=== PATIENT | male | born 1995 | race Asian ===

== ENCOUNTER 2017-01-22 21:46 | Inpatient (IN) | payer OTHER ==
[~2017-01-22] VITALS: Ht 167.6 cm; Wt 73.0 kg
[2017-01-22 21:48] VITALS: BP 136/76; PULSE 71; RESP 16; TEMP 97.9; O2SAT 97
[2017-01-23] VITALS (12 sets, daily range): BP systolic 93–153; BP diastolic 52–79; PULSE 53–82; RESP 16–20; TEMP 97.7–99.2; O2SAT 97–100
--- NOTE | 2017-01-23 00:13 | RADRPT ---
EXAM DATE/TIME: 01/23/2017 00:05 [facility] COMPARISON: No previous studies available for comparison. INDICATIONS : Shortness of breath and chest pain. MEDICAL HISTORY : None. SURGICAL HISTORY : None. ENCOUNTER: Initial ACUITY: 1 day PAIN SCORE: 2/10 LOCATION: Bilateral chest FINDINGS: There is a diffuse pneumothorax presently occupying the entire left pleural space with slight shift o f the mediastinal structures towards the right and the left lung is completely collapsed. No definite fracture is seen for technique. CONCLUSION: Pneumothorax occupying the entire left pleural space with completely collapsed left lung. Kory Haile MD on January 23, 2017 at 0:10 Board Certified Radiologist. This report was verified electronically.
[2017-01-23] MEDS ORDERED: LIDOCAINE 2%/EPINEPHrine 1:100,000 50ML MDV ONE (00:59)
[2017-01-23] MEDS ORDERED: PROPOFOL 200 MG/20 ML AMP IV ONE (01:00)
[2017-01-23] MEDS ORDERED: MORPHINE SULFATE 4 MG/ML INJ IV PUSH ONE (01:00)
[2017-01-23] MEDS ORDERED: ONDANSETRON HCL 4 MG/2 ML VIAL IV ONE (01:00)
[2017-01-23] MEDS ORDERED: LIDOCAINE 1%/EPINEPHrine 1:100,000 SOLN 20 ML VIAL INFIL ONE (01:00)
[2017-01-23] MEDS ORDERED: SODIUM CHLOR 0.9% 1000 ML INJ 1,000 ML IV ONE (01:00)
[2017-01-23 01:07] LABS: AUTOMATED NEUTROPHIL # 6.8 TH/MM3 (1.8-7.7); BASOPHIL % 0.3 % (0.0-2.0); EOSINOPHIL # 0.2 TH/MM3 (0-0.4); EOSINOPHIL % 1.5 % (0.0-4.0); HEMATOCRIT 46.1 % (39.0-51.0); HEMO FLAGS DIFF FINAL; LYMPH % 23.7 % (9.0-44.0); LYMPHOCYTE # 2.4 TH/MM3 (1.0-4.8); MEAN CELL VOLUME 90.2 FL (80.0-100.0); MEAN CORPUSCULAR HEMOGLOBIN 29.6 PG (27.0-34.0); MEAN CORPUSCULAR HGB CONC 32.8 % (32.0-36.0); MONO % 6.5 % (0.0-8.0); PLATELET COUNT 195 TH/MM3 (150-450); RED BLOOD COUNT 5.11 MIL/MM3 (4.50-5.90); RED CELL DISTRIBUTION WIDTH 12.9 % (11.6-17.2); WHITE BLOOD COUNT 10.1 TH/MM3 (4.0-11.0)
[2017-01-23 01:19] LABS: APTT (PATIENT) 28.7 SEC (24.3-30.1); PROTHROMBIN TIME - PATIENT 10.7 SEC (9.8-11.6)
[2017-01-23 01:42] LABS: BICARBONATE 30.4 MEQ/L (21.0-32.0); POTASSIUM 3.9 MEQ/L (3.5-5.1)
--- NOTE | 2017-01-23 02:16 | PD ---
HPI Chief Complaint: Respiratory Distress Time Seen by Provider: 00:38 Travel History International Travel<30 days: No Contact w/Intl Traveler<30days: No Traveled to known affect area: No History of Present Illness HPI The patient is a 21 year old male who presents to the [facility] emergency department with a history of left-sided chest pain and back pain that he reports began suddenly while he was sitting in class. He reports that the pain was sharp in character. The patient reports that after class when he was walking around he noticed that he had dyspnea on exertion. The patient reports that he had multiple things to do today, therefore he waited until he completed all of his activities and then came to the emergency department. The patient denies having any history of cardiac disease. The patient denies having any recent fevers, cough, congestion, neck pain, abdominal pain, vomiting, diarrhea , urinary symptoms, or neurologic symptoms. [facility] Past Medical History Narrative Medical The patient's past medical history is reportedly none. Medical History: Denies Significant Hx Diminished Hearing: No Tetanus Vaccination: Never Vaccinated Influenza Vaccination: No Past Surgical History Narrative Surgical The patient's past surgical history is reportedly none. Surgical History: No Previous Surgery Social History Alcohol Use: No Tobacco Use: No Substance Use: No Allergies-Medications (Allergen,Severity, Reaction): Coded Allergies: No Known Allergies (Unverified , 01/23/17) Reported Meds & Prescriptions Reported Meds & Active Scripts Active No Active Prescriptions or Reported Medications Review of Systems Except as stated in HPI: all other systems reviewed are Neg General / Constitutional: No: Fever Eyes: No: Visual changes HENT: No: Headaches Cardiovascular: Positive: Chest Pain or Discomfort, Dyspnea on exertion Respiratory: Positive: Shortness of Breath Gastrointestinal: No: Abdominal Pain Genitourinary: No: Dysuria Musculoskeletal: No: Pain Skin: No Rash Neurologic: No: Weakness Psychiatric: No: Depression Endocrine: No: Polydipsia Hematologic/Lymphatic: No: Easy Bruising Physical Exam Narrative General: The patient is a well-developed well-nourished male in no acute distress. Head and Neck exam: Head is normocephalic atraumatic. Eyes: EOMI, pupils are equal round and reactive to light. Nose: Midline septum with pink mucous membranes Mouth: Dentition unremarkable. Moist mucus membranes. Posterior oropharynx is not erythematous. No tonsillar hypertrophy. Uvula midline. Airway patent. Neck: No palpable lymphadenopathy. No nuchal rigidity. No thyromegaly. Trachea is midline. Cardiovascular: Regular rate and rhythm without murmurs, gallops, or rubs. Lungs: The patient has decreased breath sounds on the left side, normal breath sounds on the right, no wheezes, rhonchi, or crackles. Abdomen: Soft, without tenderness to palpation in all 4 quadrants of the abdomen. No guarding, rebound, or rigidity. Normal bowel sounds are audible. Tenderness on palpation of McBurney's point. Extremities: No clubbing, cyanosis, or edema. 2+ pulses in all 4 extremities. Back: No costovertebral angle tenderness to palpation. Neurologic Exam: Grossly nonfocal. Skin Exam: No rash noted. Intact skin that is warm and dry. Data Data Last Documented VS Vital Signs Date Time Temp Pulse Resp B/P Pulse Ox O2 Delivery O2 Flow Rate FiO2 01/23/17 02:00 64 18 93/52 100 Nasal Cannula 2 01/22/17 21:48 97.9 Orders Chest, Pa & Lat (01/22/17 ) Complete Blood Count With Diff (01/23/17 00:40) Basic Metabolic Panel (Bmp) (01/23/17 00:40) Prothrombin Time / Inr (Pt) (01/23/17 00:40) Act Partial Throm Time (Ptt) (01/23/17 00:40) Iv Access Insert/Monitor (01/23/17 00:40) Ecg Monitoring (01/23/17 00:40) Oxygen Administration (01/23/17 00:40) Oximetry (01/23/17 00:40) Sodium Chlor 0.9% 1000 Ml Inj (Ns 1000 M (01/23/17 01:00) Ondansetron Inj (Zofran Inj) (01/23/17 01:00) Propofol 200 Mg/20 Ml Inj (Diprivan 200 (01/23/17 01:00) Morphine Inj (Morphine Inj) (01/23/17 01:00) Lidocai-Epi 1%-1:100,000 Inj (Xylocaine- (01/23/17 01:00) Lidocai-Epi 2%-1:100,000 Inj (Xylocaine- (01/23/17 00:59) Chest, Single Ap (01/23/17 02:10) Admit Order (Ed Use Only) (01/23/17 02:35) Vital Signs (Adult) Q4H (01/23/17 02:35) Activity Oob With Assistance (01/23/17 02:35) Sterilization Tech / Telemetry .CONTINUOUS (01/23/17 02:35) Diet Heart Healthy (01/23/17 Breakfast) Sodium Chloride 0.9% Flush (Ns Flush) (01/23/17 02:45) Sodium Chloride 0.9% Flush (Ns Flush) (01/23/17 09:00) Naloxone Inj (Narcan Inj) (01/23/17 02:45) Place In Observation (01/23/17 ) Labs Laboratory Tests Test 01/23/17 00:46 White Blood Count 10.1 TH/MM3 Red Blood Count 5.11 MIL/MM3 Hemoglobin 15.1 GM/DL Hematocrit 46.1 % Mean Corpuscular Volume 90.2 FL Mean Corpuscular Hemoglobin 29.6 PG Mean Corpuscular Hemoglobin 32.8 % Concent Red Cell Distribution Width 12.9 % Platelet Count 195 TH/MM3 Mean Platelet Volume 8.9 FL Neutrophils (%) (Auto) 68.0 % Lymphocytes (%) (Auto) 23.7 % Monocytes (%) (Auto) 6.5 % Eosinophils (%) (Auto) 1.5 % Basophils (%) (Auto) 0.3 % Neutrophils # (Auto) 6.8 TH/MM3 Lymphocytes # (Auto) 2.4 TH/MM3 Monocytes # (Auto) 0.7 TH/MM3 Eosinophils # (Auto) 0.2 TH/MM3 Basophils # (Auto) 0.0 TH/MM3 CBC Comment DIFF FINAL Differential Comment Prothrombin Time 10.7 SEC Prothromb Time International 1.0 RATIO Ratio Activated Partial 28.7 SEC Thromboplast Time Sodium Level 139 MEQ/L Potassium Level 3.9 MEQ/L Chloride Level 103 MEQ/L Carbon Dioxide Level 30.4 MEQ/L Anion Gap 6 MEQ/L Blood Urea Nitrogen 16 MG/DL Creatinine 1.03 MG/DL Estimat Glomerular Filtration 89 ML/MIN Rate Random Glucose 125 MG/DL Calcium Level 9.0 MG/DL MDM Medical Decision Making Medical Screen Exam Complete: Yes Emergency Medical Condition: Yes Medical Record Reviewed: Yes Interpretation(s) Last Impressions Chest X-Ray 01/22/17 0000 Signed Impressions: Service Date/Time: Monday, January 23, 2017 00:05 - CONCLUSION: Pneumothorax occupying the entire left pleural space with completely collapsed left lung. Kory Haile MD Differential Diagnosis Pneumothorax, versus pneumonia, versus costochondritis, versus musculoskeletal strain, versus pleurisy Narrative Course During the course of the patients emergency department visit, the patients history, examination, and differential diagnosis were reviewed with the patient. The patient had a chest x-ray ordered. He was on a can marker with oximetry and blood pressure monitoring. The patient had an EKG done on arrival. The patient's EKG shows a sinus rhythm heart rate of 74, no acute ST segment elevation or depression, QRS duration is 81 ms, QTC 372 ms. The chest x-ray came back as showing a large left-sided pneumothorax. IV access was obtained, blood work was sent for analysis. The patient consented for a pigtail chest tube placement on the left side. The patient was initially provided morphine for pain, Zofran for nausea, normal saline 1 L IV fluid bolus was started. The patients laboratory studies were reviewed and remarkable for a CBC that is within normal limits, BMP is unremarkable, glucose 125, PT PTT within normal limits. A repeat chest x-ray reveals reexpansion of the patient's collapsed lung with a pigtail catheter in place. The patients results were discussed with the patient, including the plan of care. I explained that further testing and/ or monitoring is indicated based on the patients history, examination, and/ or laboratory findings. Therefore, I recommended admission for additional evaluation. The patient expressed understanding and was agreeable with this plan. The patient was admitted to the hospital in stable condition and [facility] Procedures Procedure Narrative The patient consented to Chest tube placement on the left. While procedural sedation was provided by Dr. Hansen with propofol, a time out was done and the patient had a left sided pig tail chest tube placed in the 5th intercostal space left anterior axillary line after thoroughly cleansing the area. The catheter was easily placed and connected to under water suction at 40. The catheter was secured and a postprocedure fill confirmed placement and reexpansion of his lung. Physician Communication Physician Communication The patient's case was d/w Dr. De Oliveira who agreed with the plan to proceed with admission. Diagnosis Primary Impression: Spontaneous pneumothorax Admitting Information Admitting Physician Requests: Admit Scripts No Active Prescriptions or Reported Meds Tracey Chew MD Jan 23, 2017 02:15
--- NOTE | 2017-01-23 02:43 | RADRPT ---
EXAM DATE/TIME: 01/23/2017 02:25 [facility] COMPARISON: CHEST PA & LAT, January 23, 2017, 0:05. INDICATIONS : Post procedure, chest tube placement. MEDICAL HISTORY : None. SURGICAL HISTORY : None. ENCOUNTER: Initial ACUITY: 1 day PAIN SCORE: 0/10 LOCATION: Bilateral chest FINDINGS: Chest tube is present on the left side. Previously seen pneumothorax has basically resolved with the exception of a tiny left apical pneumothorax remaining. There is slight atelectasis in the left upper lung and left lower lung. CONCLUSION: Reexpansion of the left lung post chest tube placement with a tiny left apical pneumothorax. Kory Haile MD on January 23, 2017 at 2:41 Board Certified Radiologist. This report was verified electronically.
[2017-01-23] MEDS ORDERED: SODIUM CHLORIDE 0.9% FLUSH 10 ML FLUSH IV FLUSH PRN (02:45)
[2017-01-23] MEDS ORDERED: NALOXONE HCL 0.4 MG/ML AMP IV PRN (02:45)
--- NOTE | 2017-01-23 07:42 | HHI.HP ---
[facility] Primary Care Physician No Primary Care Physician Admission Diagnosis Spontaneous pneumothorax Diagnoses: (1) Spontaneous pneumothorax Diagnosis: Principal Chief Complaint: chest pain Travel History International Travel<30 Days: No Contact w/Intl Traveler <30 Da: No Traveled to Known Affected Are: No History of Present Illness patient is a 21 y/o male with no significant past medical history who presented to ER with left sided chest pain. he says that yesterday around ten in the morning he suddenly started to have some chest pain. pain was moderate in intensity, left sided and associated with sob. he says that the pain lasted till yesterday evening when he decided to come to ER. he was found to have pneumothorax for which he had chest tube. the pain and sob improved after the chest tube insertion. Review of Systems Constitutional: DENIES: Fever, Weight loss, Chills, Night Sweats Eyes: DENIES: Blurred vision, Diplopia, Vision loss, Double Vision Ears, nose, mouth, throat: DENIES: Tinnitus, Vertigo, Throat pain, Epistaxis Respiratory: COMPLAINS OF: Shortness of breath, DENIES: Apneas, Cough, Snoring , Wheezing, Hemoptysis, Sputum production Cardiovascular: COMPLAINS OF: Chest pain, DENIES: Palpitations, Syncope, Dyspnea on Exertion, PND, Lower Extremity Edema, Orthopnea, Claudication Gastrointestinal: DENIES: Abdominal pain, Black stools, Bloody stools, Constipation, Diarrhea, Nausea, Vomiting, Difficulty Swallowing, Anorexia Genitourinary: DENIES: Urinary frequency, Urgency, Hematuria, Dysuria Musculoskeletal: DENIES: Joint pain, Muscle aches, Stiffness, Joint Swelling Integumentary: DENIES: Rash Neurologic: DENIES: Abnormal gait, Headache, Localized weakness, Paresthesias, Seizures, Speech Problems, Tremor, Poor Balance Psychiatric: DENIES: Anxiety, Confusion, Mood changes, Depression, Hallucinations, Agitation, Suicidal Ideation, Homicidal Ideation, Delusions Past Family Social History Past Medical History not significant. Past Surgical History none reported. Reported Medications none. Allergies: Coded Allergies: No Known Allergies (Unverified , 01/23/17) Active Ordered Medications Current Medications Sodium Chloride (NS 1000 ml Inj) 1,000 ml @ 1,000 mls/hr Q1H ONCE IV Last administered on 01/23/17 02:09; Start 01/23/17 at 01:00; Stop 01/23/17 at 01:59 ; Status DC Ondansetron HCl (Zofran Inj) 4 mg ONCE ONCE IV Last administered on 01/23/17 02:09; Start 01/23/17 at 01:00; Stop 01/23/17 at 01:01; Status DC Propofol (Diprivan 200 Mg/20 ml Inj) 50 mg ONCE ONCE IV Last administered on 01/23/17 02:09; Start 01/23/17 at 01:00; Stop 01/23/17 at 01:01; Status DC Morphine Sulfate (Morphine Inj) 2 mg ONCE ONCE IV PUSH Last administered on 02:08; Start 01/23/17 at 01:00; Stop 01/23/17 at 01:01; Status DC Lidocaine/ Epinephrine (Xylocaine-Epi 1%-1:100,000 Inj) 30 ml ONCE ONCE INFIL Last administered on 01/23/17 02:09; Start 01/23/17 at 01:00; Stop 01/23/17 at 01:01; Status DC Sodium Chloride (NS Flush) 2 ml UNSCH PRN IV FLUSH FLUSH AFTER USING IV ACCESS ; Start 01/23/17 at 02:45 Sodium Chloride (NS Flush) 2 ml BID IV FLUSH ; Start 01/23/17 at 09:00 Naloxone HCl (Narcan Inj) 0.4 mg UNSCH PRN IV SEE LABEL COMMENTS; Start at 02:45 Family History not significant. Social History no smoking or drinking. Physical Exam Vital Signs Vital Signs Date Time Temp Pulse Resp B/P Pulse Ox O2 Delivery O2 Flow Rate FiO2 01/23/17 05:01 98.6 81 16 127/60 100 01/23/17 04:00 74 16 103/52 100 Nasal Cannula 2 01/23/17 03:54 100 Nasal Cannula 2 01/23/17 03:00 78 18 119/56 100 Nasal Cannula 2 01/23/17 02:00 64 18 93/52 100 Nasal Cannula 2 01/23/17 01:40 100 Nasal Cannula 4.00 01/23/17 01:40 100 4.00 01/23/17 01:00 82 20 153/79 100 Nasal Cannula 2 01/23/17 00:31 85 22 98 Room Air 01/22/17 21:48 97.9 71 16 136/76 97 Room Air Physical Exam GENERAL: This is a well-nourished, well-developed patient, in no apparent distress. SKIN: No rashes, ecchymoses or lesions. Cool and dry. HEAD: Atraumatic. Normocephalic. No temporal or scalp tenderness. EYES: Pupils equal round and reactive. Extraocular motions intact. No scleral icterus. No injection or drainage. ENT: Nose without bleeding, purulent drainage or septal hematoma. Throat without erythema, tonsillar hypertrophy or exudate. Uvula midline. Airway patent. NECK: Trachea midline. No JVD or lymphadenopathy. Supple, nontender, no meningeal signs. CARDIOVASCULAR: Regular rate and rhythm without murmurs, gallops, or rubs. RESPIRATORY: diminished air entry on left base with chest tube in place. GASTROINTESTINAL: Abdomen soft, non-tender, nondistended. No hepato-splenomegaly , or palpable masses. No guarding. MUSCULOSKELETAL: Extremities without clubbing, cyanosis, or edema. No joint tenderness, effusion, or edema noted. No calf tenderness. Negative Homans sign bilaterally. NEUROLOGICAL: Awake and alert. Cranial nerves II through XII intact. Motor and sensory grossly within normal limits. Five out of 5 muscle strength in all muscle groups. Normal speech. Laboratory Laboratory Tests Test 01/23/17 00:46 White Blood Count 10.1 Red Blood Count 5.11 Hemoglobin 15.1 Hematocrit 46.1 Mean Corpuscular Volume 90.2 Mean Corpuscular Hemoglobin 29.6 Mean Corpuscular Hemoglobin 32.8 Concent Red Cell Distribution Width 12.9 Platelet Count 195 Mean Platelet Volume 8.9 Neutrophils (%) (Auto) 68.0 Lymphocytes (%) (Auto) 23.7 Monocytes (%) (Auto) 6.5 Eosinophils (%) (Auto) 1.5 Basophils (%) (Auto) 0.3 Neutrophils # (Auto) 6.8 Lymphocytes # (Auto) 2.4 Monocytes # (Auto) 0.7 Eosinophils # (Auto) 0.2 Basophils # (Auto) 0.0 CBC Comment DIFF FINAL Differential Comment Prothrombin Time 10.7 Prothromb Time International 1.0 Ratio Activated Partial 28.7 Thromboplast Time Sodium Level 139 Potassium Level 3.9 Chloride Level 103 Carbon Dioxide Level 30.4 Anion Gap 6 Blood Urea Nitrogen 16 Creatinine 1.03 Estimat Glomerular Filtration 89 Rate Random Glucose 125 Calcium Level 9.0 Result Diagram: 01/23/17 0046 01/23/17 0046 Imaging Last Impressions Chest X-Ray 01/23/17209 Signed Impressions: Service Date/Time: Monday, January 23, 2017 02:25 - CONCLUSION: Reexpansion of the left lung post chest tube placement with a tiny left apical pneumothorax. Kory Haile MD Assessment and Plan Assessment and Plan A/P - spontaneous pneumothorax with collapsed left lung. s/p chest tube placement- continue with pain control. pulmonary consulted. Discussed Condition With the patient. Physician Certification 2 Midnight Certification Type: Admission for Inpatient Services Order for Inpatient Services The services are ordered in accordance with Medicare regulations or non- Medicare payer requirements, as applicable. In the case of services not specified as inpatient-only, they are appropriately provided as inpatient services in accordance with the 2-midnight benchmark. Estimated LOS (days): 2 days is the estimated time the patient will need to remain in the hospital, assuming treatment plan goals are met and no additional complications. Post-Hospital Plan: Home Jose Yu MD Jan 23, 2017 07:42
[2017-01-23] MEDS: SODIUM CHLORIDE 0.9% FLUSH 10 ML FLUSH IV FLUSH SCH ×2 (07:57→20:11)
--- NOTE | 2017-01-23 07:57 | EKG ---
Date Performed: 01/23/2017 Time Performed: 00:37:07 PTAGE: 21 years EKG: BASELINE ARTIFACT PRESENT. Sinus rhythm POSSIBLE RIGHT VENTRICULAR CONDUCTION DELAY BORDERLINE ECG NO PREVIOUS TRACING DOCTOR: Víctor Cowart Interpretating Date/Time 01/23/2017 07:56:22
[2017-01-23] MEDS: ACETAMINOPHEN 325 MG TAB PO PRN ×2 (13:46→20:15)
--- NOTE | 2017-01-23 22:48 | RADRPT ---
EXAM DATE/TIME: 01/23/2017 22:37 [facility] COMPARISON: No previous studies available for comparison. INDICATIONS : Evaluate pneumothorax. RADIATION DOSE: 5.65 CTDIvol (mGy) MEDICAL HISTORY : None SURGICAL HISTORY : None. ENCOUNTER: Initial ACUITY: 1 day PAIN SCALE: 5/10 LOCATION: chest TECHNIQUE: Volumetric scanning of the chest was performed. Using automated exposure control and adjustment of t he mA and/or kV according to patient size, radiation dose was kept as low as reasonably achievable to obtain optimal diagnostic quality images. FINDINGS: Small caliber left chest tube present, loop formed clearly within main pleural space anterolaterally of the upper left hemithorax. A moderate left pneumothorax is present. No mediastinal shift. There is atelectasis of the left lung base and a small left pleural effusion. Normal heart size. No adenopathy. No mass demonstrated. CONCLUSION: Moderate left pneumothorax despite presence of a chest tube that appears appropriately positioned. A small left pleural effusion is also seen and there is atelectasis of the left base. Tim Marrero MD on January 23, 2017 at 22:44 Board Certified Radiologist. This report was verified electronically.
[2017-01-24] VITALS (7 sets, daily range): BP systolic 108–157; BP diastolic 56–87; PULSE 52–78; RESP 15–18; TEMP 96.6–98.5; O2SAT 96–100
[2017-01-24] MEDS: ACETAMINOPHEN 325 MG TAB PO PRN ×2 (03:30→07:41)
--- NOTE | 2017-01-24 06:00 | MB ---
cc: DANII FOY M.D. DATE OF CONSULTATION January 23, 2017 REASON FOR CONSULTATION Spontaneous pneumothorax. HISTORY OF PRESENT ILLNESS Mr. Abrams is a 21-year-old male who presents to the emergency room with acute left-sided chest pain with evidence of pneumothorax by chest x-ray. A left chest tube was placed with resolution of the pneumothorax. The patient denies shortness of breath or chest pain at this time. PAST MEDICAL HISTORY Denies history of diabetes, hypertension, heart disease. No previous pneumothorax. ALLERGIES None known to medication. FAMILY HISTORY Noncontributory. SYSTEMS REVIEW A 12-point review of systems as per HPI and past history, otherwise negative. PHYSICAL EXAMINATION GENERAL: The patient is alert. VITAL SIGNS: Temperature 98, pulse 80s, respiratory rate 18, blood pressure 110/60. HEENT: Exam unremarkable. Eyes without icterus. NECK: Without adenopathy or thyroid enlargement. Central trachea. CARDIAC EXAM: PMI not appreciated. S1 and S2 audible. No murmur, no rub. ABDOMEN: Lax. Audible bowel sounds. EXTREMITIES: No clubbing, cyanosis or edema. SKIN: Normal. No lymphadenopathy. LABORATORY DATA Chest x-ray upon presentation shows almost complete collapse of the left lung with large pneumothorax. Repeat post-tube insertion reveals expansion of the patient's left pneumothorax. White count 10,000, hemoglobin 15, hematocrit 46, platelets 195,000. Sodium 139, potassium 3.9, BUN 16, creatinine 1.0. IMPRESSION Spontaneous left pneumothorax. PLAN The patient had no previous episodes of pneumothorax, has very minimal leak through his chest tube at this point. We will observe his pneumothorax and remove the chest tube when possible. Obviously if recurrent pneumothorax occurs, further intervention would be needed. Meanwhile we obtain a CT scan of the chest to assess the presence of other bullae and the need for further intervention as well. I do thank you for asking me to partake in Mr. Abrams's care. Sincerely Danii Foy MD WWW/DIHN /4:22 PM /5:50 AM
[2017-01-24] MEDS: SODIUM CHLORIDE 0.9% FLUSH 10 ML FLUSH IV FLUSH SCH ×2 (07:42→19:26)
--- NOTE | 2017-01-24 08:30 | HHI.PR ---
Subjective Remarks chest tube in place. not as comfortable as yesterday and complaining of moderate to severe pain at left chest. Objective Vitals Vital Signs Date Time Temp Pulse Resp B/P Pulse Ox O2 Delivery O2 Flow Rate FiO2 01/24/17 08:00 96.8 52 15 108/56 100 01/24/17 07:40 Nasal Cannula 2.00 01/24/17 04:30 18 01/24/17 04:30 97.5 58 17 138/64 100 01/24/17 00:57 98.5 78 17 126/75 97 01/23/17 20:04 67 01/23/17 20:00 99.2 75 18 128/56 97 01/23/17 16:00 98.5 62 20 129/58 99 01/23/17 12:00 98.3 64 20 114/58 100 I/O 01/23/17 01/23/17 01/23/17 01/24/17 01/24/17 01/24/17 07:00 15:00 23:00 07:00 15:00 23:00 Intake Total 0 ml 880 ml 380 ml 280 ml Output Total 0 ml 500 ml 211 ml 0 ml Balance 0 ml 380 ml 169 ml 280 ml Intake Oral 880 ml 380 ml 280 ml IV Total 0 ml Output Urine Total 500 ml 200 ml Chest Tube Drainage Total 0 ml 0 ml 11 ml 0 ml # Voids 2 2 # Bowel Movements 0 0 0 Result Diagram: 01/23/17 0046 01/23/17 0046 Imaging Last Impressions Chest X-Ray 01/23/17 0210 Signed Impressions: Service Date/Time: Monday, January 23, 2017 02:25 - CONCLUSION: Reexpansion of the left lung post chest tube placement with a tiny left apical pneumothorax. Kory Haile MD Chest CT 01/23/17 0000 Signed Impressions: Service Date/Time: Monday, January 23, 2017 22:37 - CONCLUSION: Moderate left pneumothorax despite presence of a chest tube that appears appropriately positioned. A small left pleural effusion is also seen and there is atelectasis of the left base. Tim Marrero MD Objective Remarks GENERAL: This is a well-nourished, well-developed patient, in no apparent distress. CARDIOVASCULAR: Regular rate and regular rhythm without murmurs, gallops, or rubs. RESPIRATORY: Clear to auscultation. Breath sounds equal bilaterally. No wheezes , rales, or rhonchi. chest tube in place. GASTROINTESTINAL: Abdomen soft, non-tender, nondistended. Normal, active bowel sounds MUSCULOSKELETAL: Extremities without clubbing, cyanosis, or edema. NEURO: Alert & Oriented x4 to person, place, time, situation. Moves all ext x4 Procedures chest tube placement. Medications and IVs Current Medications Sodium Chloride (NS 1000 ml Inj) 1,000 ml @ 1,000 mls/hr Q1H ONCE IV Last administered on 01/23/17 02:09; Start 01/23/17 at 01:00; Stop 01/23/17 at 01:59 ; Status DC Ondansetron HCl (Zofran Inj) 4 mg ONCE ONCE IV Last administered on 01/23/17 02:09; Start 01/23/17 at 01:00; Stop 01/23/17 at 01:01; Status DC Propofol (Diprivan 200 Mg/20 ml Inj) 50 mg ONCE ONCE IV Last administered on 01/23/17 02:09; Start 01/23/17 at 01:00; Stop 01/23/17 at 01:01; Status DC Morphine Sulfate (Morphine Inj) 2 mg ONCE ONCE IV PUSH Last administered on 02:08; Start 01/23/17 at 01:00; Stop 01/23/17 at 01:01; Status DC Lidocaine/ Epinephrine (Xylocaine-Epi 1%-1:100,000 Inj) 30 ml ONCE ONCE INFIL Last administered on 01/23/17 02:09; Start 01/23/17 at 01:00; Stop 01/23/17 at 01:01; Status DC Sodium Chloride (NS Flush) 2 ml UNSCH PRN IV FLUSH FLUSH AFTER USING IV ACCESS ; Start 01/23/17 at 02:45 Sodium Chloride (NS Flush) 2 ml BID IV FLUSH Last administered on 01/24/17 07: 42; Start 01/23/17 at 09:00 Naloxone HCl (Narcan Inj) 0.4 mg UNSCH PRN IV SEE LABEL COMMENTS; Start at 02:45 Acetaminophen (Tylenol) 650 mg Q4H PRN PO FEVER/PAIN 1-10 Last administered on 6/15/17at 07:41; Start 01/23/17 at 07:30 A/P Assessment and Plan A/p - spontaneous pneumothorax with collapsed left lung. chest tube in place- continue with pain control; will start norco for better pain control- continue to monitor and adjust the pain regimen accordingly. repeat CXR today. pulmonary consult appreciated. Jose Yu MD Jan 24, 2017 08:30
--- NOTE | 2017-01-24 09:14 | RADRPT ---
EXAM DATE/TIME: 01/24/2017 08:42 [facility] COMPARISON: CHEST SINGLE AP, January 23, 2017, 2:25. INDICATIONS : Spontaneous pneumothorax. MEDICAL HISTORY : spontaneous pneumothorax SURGICAL HISTORY : None. ENCOUNTER: Subsequent ACUITY: 3 days PAIN SCORE: 7/10 LOCATION: Left chest FINDINGS: A small left apical pneumothorax is still evident. Increasing left basilar airspace disease is noted. Right lung remains clear. Heart and mediastinal structures are stable. CONCLUSION: Persistent small left apical pneumothorax. Left chest tube remains in place. Increasing left basilar airspace disease. Orlin Castellanos MD on January 24, 2017 at 9:09 Board Certified Radiologist. This report was verified electronically.
[2017-01-24] MEDS: ACETAMINOPHEN/HYDROcodone 325 MG/7.5 MG TAB PO PRN ×3 (12:15→23:54)
[2017-01-25] VITALS (7 sets, daily range): BP systolic 117–126; BP diastolic 53–58; PULSE 55–61; RESP 16–20; TEMP 96.9–98; O2SAT 94–100
[2017-01-25] MEDS: ACETAMINOPHEN/HYDROcodone 325 MG/7.5 MG TAB PO PRN (04:15)
--- NOTE | 2017-01-25 07:33 | HHI.PR ---
Subjective Remarks looks and feels more comfortable today. says that his breathing is easier today and pain is better. no new complaints. Objective Vitals Vital Signs Date Time Temp Pulse Resp B/P Pulse Ox O2 Delivery O2 Flow Rate FiO2 01/25/17 05:15 18 01/25/17 04:25 97.1 58 17 124/57 99 01/25/17 00:19 98.0 57 16 120/56 100 01/24/17 20:34 60 01/24/17 20:20 97.8 71 18 157/87 96 01/24/17 19:27 Nasal Cannula 2.00 01/24/17 16:00 96.6 66 17 133/75 97 01/24/17 12:00 97.4 65 18 115/57 99 01/24/17 08:00 96.8 52 15 108/56 100 01/24/17 07:40 Nasal Cannula 2.00 I/O 01/24/17 01/24/17 01/24/17 01/25/17 01/25/17 01/25/17 07:00 15:00 23:00 07:00 15:00 23:00 Intake Total 280 ml 480 ml 480 ml 280 ml Output Total 0 ml 20 ml 0 ml Balance 280 ml 460 ml 480 ml 280 ml Intake Oral 280 ml 480 ml 480 ml 280 ml Chest Tube Drainage Total 0 ml 20 ml 0 ml # Voids 2 1 2 2 # Bowel Movements 0 0 Result Diagram: 01/23/17 0046 01/23/17 0046 Imaging Last Impressions Chest X-Ray 01/24/17 0000 Signed Impressions: Service Date/Time: January 08:42 - CONCLUSION: Persistent small left apical pneumothorax. Left chest tube remains in place. Increasing left basilar airspace disease. Orlin Castellanos MD Chest CT 01/23/17 0000 Signed Impressions: Service Date/Time: Monday, January 23, 2017 22:37 - CONCLUSION: Moderate left pneumothorax despite presence of a chest tube that appears appropriately positioned. A small left pleural effusion is also seen and there is atelectasis of the left base. Tim Marrero MD Objective Remarks GENERAL: This is a well-nourished, well-developed patient, in no apparent distress. CARDIOVASCULAR: Regular rate and regular rhythm without murmurs, gallops, or rubs. RESPIRATORY: Clear to auscultation. Breath sounds equal bilaterally. No wheezes , rales, or rhonchi. chest tube in place. GASTROINTESTINAL: Abdomen soft, non-tender, nondistended. Normal, active bowel sounds MUSCULOSKELETAL: Extremities without clubbing, cyanosis, or edema. NEURO: Alert & Oriented x4 to person, place, time, situation. Moves all ext x4 Procedures chest tube placement. Medications and IVs Current Medications Sodium Chloride (NS 1000 ml Inj) 1,000 ml @ 1,000 mls/hr Q1H ONCE IV Last administered on 01/23/17 02:09; Start 01/23/17 at 01:00; Stop 01/23/17 at 01:59 ; Status DC Ondansetron HCl (Zofran Inj) 4 mg ONCE ONCE IV Last administered on 01/23/17 02:09; Start 01/23/17 at 01:00; Stop 01/23/17 at 01:01; Status DC Propofol (Diprivan 200 Mg/20 ml Inj) 50 mg ONCE ONCE IV Last administered on 01/23/17 02:09; Start 01/23/17 at 01:00; Stop 01/23/17 at 01:01; Status DC Morphine Sulfate (Morphine Inj) 2 mg ONCE ONCE IV PUSH Last administered on 02:08; Start 01/23/17 at 01:00; Stop 01/23/17 at 01:01; Status DC Lidocaine/ Epinephrine (Xylocaine-Epi 1%-1:100,000 Inj) 30 ml ONCE ONCE INFIL Last administered on 01/23/17 02:09; Start 01/23/17 at 01:00; Stop 01/23/17 at 01:01; Status DC Sodium Chloride (NS Flush) 2 ml UNSCH PRN IV FLUSH FLUSH AFTER USING IV ACCESS ; Start 01/23/17 at 02:45 Sodium Chloride (NS Flush) 2 ml BID IV FLUSH Last administered on 01/24/17 19: 26; Start 01/23/17 at 09:00 Naloxone HCl (Narcan Inj) 0.4 mg UNSCH PRN IV SEE LABEL COMMENTS; Start at 02:45 Acetaminophen (Tylenol) 650 mg Q4H PRN PO FEVER/ PAIN 1-3 Last administered on 6/15/17at 07:41; Start 01/23/17 at 07:30 Acetaminophen/ Hydrocodone Bitart ([place] 5-325 Mg) 1 tab Q4H PRN PO PAIN 4-6; Start 01/24/17 at 08:30 Acetaminophen/ Hydrocodone Bitart ([place] 7.5-325 Mg) 1 tab Q4H PRN PO PAIN 7- 10 Last administered on 01/25/17 04:15; Start 01/24/17 at 08:30 A/P Assessment and Plan A/p - spontaneous pneumothorax with collapsed left lung. chest tube in place- continue with pain control; pain is better controlled. continue to monitor and adjust the pain regimen accordingly. awaiting pulmonary follow-up and recommendations. Jose Yu MD Jan 25, 2017 07:33
--- NOTE | 2017-01-25 08:26 | HHI.PR ---
Subjective Remarks alert no SOB CT STILL WITH LEAK Objective Vital Signs Date Time Temp Pulse Resp B/P Pulse Ox O2 Delivery O2 Flow Rate FiO2 01/25/17 05:15 18 01/25/17 04:25 97.1 58 17 124/57 99 01/25/17 00:19 98.0 57 16 120/56 100 01/24/17 20:34 60 01/24/17 20:20 97.8 71 18 157/87 96 01/24/17 19:27 Nasal Cannula 2.00 01/24/17 16:00 96.6 66 17 133/75 97 01/24/17 12:00 97.4 65 18 115/57 99 I/O 01/24/17 01/24/17 01/24/17 01/25/17 01/25/17 01/25/17 07:00 15:00 23:00 07:00 15:00 23:00 Intake Total 280 ml 480 ml 480 ml 280 ml Output Total 0 ml 20 ml 0 ml Balance 280 ml 460 ml 480 ml 280 ml Intake Oral 280 ml 480 ml 480 ml 280 ml Chest Tube Drainage Total 0 ml 20 ml 0 ml # Voids 2 1 2 2 # Bowel Movements 0 0 Result Diagram: 01/23/17 0046 01/23/17 0046 Objective Remarks GENERAL: SKIN: Warm and dry. HEAD: Atraumatic. Normocephalic. EYES: Pupils equal and round. No scleral icterus. No injection or drainage. ENT: No nasal bleeding or discharge. Mucous membranes pink and moist. NECK: Trachea midline. No JVD. CARDIOVASCULAR: Regular rate and rhythm. RESPIRATORY: No accessory muscle use. Clear to auscultation. Breath sounds equal bilaterally. GASTROINTESTINAL: Abdomen soft, non-tender, nondistended. Hepatic and splenic margins not palpable. MUSCULOSKELETAL: Extremities without clubbing, cyanosis, or edema. No obvious deformities. NEUROLOGICAL: Awake and alert. No obvious cranial nerve deficits. Motor grossly within normal limits. Five out of 5 muscle strength in the arms and legs. Normal speech. PSYCHIATRIC: Appropriate mood and affect; insight and judgment normal. Assessment and Plan Assessment and Plan ASS: PNX STILL HAS LEAK PLAN: F/U CXRAY WILL WATCH OVER [facility] , IF LEAK PERSISTS WILL ASK THORACIC SURGERY TO SEE Danii Foy MD Jan 25, 2017 08:26
[2017-01-25] MEDS: SODIUM CHLORIDE 0.9% FLUSH 10 ML FLUSH IV FLUSH SCH ×2 (09:00→21:00)
[2017-01-25] MEDS: ACETAMINOPHEN/HYDROcodone 325 MG/5 MG TAB PO PRN ×2 (09:57→17:35)
[2017-01-26] VITALS: BP 123/55; PULSE 67; RESP 20; TEMP 96.8; O2SAT 99
[2017-01-26 04:00] VITALS: BP 121/58; PULSE 55; RESP 20; TEMP 96.7; O2SAT 99
--- NOTE | 2017-01-26 07:27 | HHI.PR ---
Subjective Remarks resting comfortably with no distress or sob. pain is controlled. no new complaints. chest tube in place. Objective Vitals Vital Signs Date Time Temp Pulse Resp B/P Pulse Ox O2 Delivery O2 Flow Rate FiO2 01/26/17 04:00 96.7 55 20 121/58 99 01/26/17 00:00 96.8 67 20 123/55 99 01/25/17 20:00 97.3 61 20 126/53 94 01/25/17 16:00 97.5 55 20 123/57 100 01/25/17 12:00 96.9 57 20 117/54 99 01/25/17 11:00 16 01/25/17 09:45 60 01/25/17 08:00 97.8 60 20 125/58 100 I/O 01/25/17 01/25/17 01/25/17 01/26/17 01/26/17 01/26/17 07:00 15:00 23:00 07:00 15:00 23:00 Intake Total 280 ml 720 ml 480 ml 240 ml Output Total 0 ml 406 ml Balance 280 ml 314 ml 480 ml 240 ml Intake Oral 280 ml 720 ml 480 ml 240 ml Output Urine Total 400 ml Chest Tube Drainage Total 0 ml 6 ml # Voids 2 3 1 # Bowel Movements 0 1 Result Diagram: 01/23/17 0046 01/23/17 0046 Imaging Last Impressions Chest X-Ray 01/24/17 0000 Signed Impressions: Service Date/Time: January 08:42 - CONCLUSION: Persistent small left apical pneumothorax. Left chest tube remains in place. Increasing left basilar airspace disease. Orlin Castellanos MD Chest CT 01/23/17 0000 Signed Impressions: Service Date/Time: Monday, January 23, 2017 22:37 - CONCLUSION: Moderate left pneumothorax despite presence of a chest tube that appears appropriately positioned. A small left pleural effusion is also seen and there is atelectasis of the left base. Tim Marrero MD Objective Remarks GENERAL: This is a well-nourished, well-developed patient, in no apparent distress. CARDIOVASCULAR: Regular rate and regular rhythm without murmurs, gallops, or rubs. RESPIRATORY: Clear to auscultation. Breath sounds equal bilaterally. No wheezes , rales, or rhonchi. chest tube in place. GASTROINTESTINAL: Abdomen soft, non-tender, nondistended. Normal, active bowel sounds MUSCULOSKELETAL: Extremities without clubbing, cyanosis, or edema. NEURO: Alert & Oriented x4 to person, place, time, situation. Moves all ext x4 Procedures chest tube placement. Medications and IVs Current Medications Sodium Chloride (NS 1000 ml Inj) 1,000 ml @ 1,000 mls/hr Q1H ONCE IV Last administered on 01/23/17 02:09; Start 01/23/17 at 01:00; Stop 01/23/17 at 01:59 ; Status DC Ondansetron HCl (Zofran Inj) 4 mg ONCE ONCE IV Last administered on 01/23/17 02:09; Start 01/23/17 at 01:00; Stop 01/23/17 at 01:01; Status DC Propofol (Diprivan 200 Mg/20 ml Inj) 50 mg ONCE ONCE IV Last administered on 01/23/17 02:09; Start 01/23/17 at 01:00; Stop 01/23/17 at 01:01; Status DC Morphine Sulfate (Morphine Inj) 2 mg ONCE ONCE IV PUSH Last administered on 02:08; Start 01/23/17 at 01:00; Stop 01/23/17 at 01:01; Status DC Lidocaine/ Epinephrine (Xylocaine-Epi 1%-1:100,000 Inj) 30 ml ONCE ONCE INFIL Last administered on 01/23/17 02:09; Start 01/23/17 at 01:00; Stop 01/23/17 at 01:01; Status DC Sodium Chloride (NS Flush) 2 ml UNSCH PRN IV FLUSH FLUSH AFTER USING IV ACCESS ; Start 01/23/17 at 02:45 Sodium Chloride (NS Flush) 2 ml BID IV FLUSH Last administered on 01/25/17 21: 00; Start 01/23/17 at 09:00 Naloxone HCl (Narcan Inj) 0.4 mg UNSCH PRN IV SEE LABEL COMMENTS; Start at 02:45 Acetaminophen (Tylenol) 650 mg Q4H PRN PO FEVER/ PAIN 1-3 Last administered on 01/24/17 07:41; Start 01/23/17 at 07:30 Acetaminophen/ Hydrocodone Bitart ([place] 5-325 Mg) 1 tab Q4H PRN PO PAIN 4-6 Last administered on 01/25/17 17:35; Start 01/24/17 at 08:30 Acetaminophen/ Hydrocodone Bitart ([place] 7.5-325 Mg) 1 tab Q4H PRN PO PAIN 7- 10 Last administered on 01/25/17 04:15; Start 01/24/17 at 08:30 A/P Assessment and Plan A/p - spontaneous pneumothorax with collapsed left lung. chest tube in place- continue with pain control. continue to monitor and adjust the pain regimen accordingly. pulmonary following. Discharge Planning when cleared by pulmonary. Jose Yu MD Jan 26, 2017 07:27
[2017-01-26 08:00] VITALS: BP 117/56; PULSE 58; RESP 16; TEMP 97.2; O2SAT 97
[2017-01-26] MEDS: ACETAMINOPHEN/HYDROcodone 325 MG/7.5 MG TAB PO PRN ×2 (09:27→15:23)
[2017-01-26] MEDS: SODIUM CHLORIDE 0.9% FLUSH 10 ML FLUSH IV FLUSH SCH ×2 (09:28→21:27)
[2017-01-26 12:00] VITALS: BP 122/58; PULSE 61; RESP 16; TEMP 97; O2SAT 98
[2017-01-26 16:00] VITALS: BP 129/56; PULSE 58; RESP 16; TEMP 97.4; O2SAT 100
--- NOTE | 2017-01-26 18:39 | HHI.PR ---
Subjective Remarks alert no SOB CT no LEAK Objective Vital Signs Date Time Temp Pulse Resp B/P Pulse Ox O2 Delivery O2 Flow Rate FiO2 01/26/17 16:00 97.4 58 16 129/56 100 01/26/17 12:00 97.0 61 16 122/58 98 01/26/17 09:15 97 Room Air 01/26/17 08:00 97.2 58 16 117/56 97 01/26/17 04:00 96.7 55 20 121/58 99 01/26/17 00:00 96.8 67 20 123/55 99 01/25/17 20:00 97.3 61 20 126/53 94 I/O 01/25/17 01/25/17 01/25/17 01/26/17 01/26/17 01/26/17 07:00 15:00 23:00 07:00 15:00 23:00 Intake Total 280 ml 720 ml 480 ml 240 ml 720 ml Output Total 0 ml 406 ml 0 ml Balance 280 ml 314 ml 480 ml 240 ml 720 ml Intake Oral 280 ml 720 ml 480 ml 240 ml 720 ml Output Urine Total 400 ml Chest Tube Drainage Total 0 ml 6 ml 0 ml # Voids 2 3 1 3 # Bowel Movements 0 1 Result Diagram: 01/23/17 0046 01/23/17 0046 Objective Remarks GENERAL: SKIN: Warm and dry. HEAD: Atraumatic. Normocephalic. EYES: Pupils equal and round. No scleral icterus. No injection or drainage. ENT: No nasal bleeding or discharge. Mucous membranes pink and moist. NECK: Trachea midline. No JVD. CARDIOVASCULAR: Regular rate and rhythm. RESPIRATORY: No accessory muscle use. Clear to auscultation. Breath sounds equal bilaterally. GASTROINTESTINAL: Abdomen soft, non-tender, nondistended. Hepatic and splenic margins not palpable. MUSCULOSKELETAL: Extremities without clubbing, cyanosis, or edema. No obvious deformities. NEUROLOGICAL: Awake and alert. No obvious cranial nerve deficits. Motor grossly within normal limits. Five out of 5 muscle strength in the arms and legs. Normal speech. PSYCHIATRIC: Appropriate mood and affect; insight and judgment normal. Assessment and Plan Assessment and Plan ASS: PNX CT NO LEAK PLAN: F/U CXRAY WILL CLAMP CT remove if no PNX Danii Foy MD Jan 26, 2017 18:39
[2017-01-26 20:00] VITALS: BP 142/84; PULSE 67; RESP 20; TEMP 97.6; O2SAT 100
[2017-01-26] MEDS: ACETAMINOPHEN/HYDROcodone 325 MG/5 MG TAB PO PRN (21:34)
[2017-01-27] VITALS (7 sets, daily range): BP systolic 115–136; BP diastolic 54–61; PULSE 56–97; RESP 16–20; TEMP 95.8–97.8; O2SAT 97–100
--- NOTE | 2017-01-27 07:41 | HHI.PR ---
Subjective Remarks resting comfortably. denies pain or sob. no new complaints. Objective Vitals Vital Signs Date Time Temp Pulse Resp B/P Pulse Ox O2 Delivery O2 Flow Rate FiO2 01/27/17 04:00 96.6 64 20 123/54 97 01/27/17 00:00 96.6 69 20 135/60 98 01/26/17 21:30 100 Room Air 01/26/17 20:00 97.6 67 20 142/84 100 01/26/17 16:00 97.4 58 16 129/56 100 01/26/17 12:00 97.0 61 16 122/58 98 01/26/17 09:15 97 Room Air 01/26/17 08:00 97.2 58 16 117/56 97 I/O 01/26/17 01/26/17 01/26/17 01/27/17 01/27/17 01/27/17 07:00 15:00 23:00 07:00 15:00 23:00 Intake Total 240 ml 720 ml 720 ml 240 ml Output Total 0 ml 0 ml 0 ml Balance 240 ml 720 ml 720 ml 240 ml 0 ml Intake Oral 240 ml 720 ml 720 ml 240 ml IV Total 0 ml 0 ml Chest Tube Drainage Total 0 ml 0 ml 0 ml # Voids 1 3 2 1 Result Diagram: 01/23/17 0046 01/23/17 0046 Imaging Last Impressions Chest X-Ray 01/24/17 0000 Signed Impressions: Service Date/Time: January 08:42 - CONCLUSION: Persistent small left apical pneumothorax. Left chest tube remains in place. Increasing left basilar airspace disease. Orlin Castellanos MD Chest CT 01/23/17 0000 Signed Impressions: Service Date/Time: Monday, January 23, 2017 22:37 - CONCLUSION: Moderate left pneumothorax despite presence of a chest tube that appears appropriately positioned. A small left pleural effusion is also seen and there is atelectasis of the left base. Tim Marrero MD Objective Remarks GENERAL: This is a well-nourished, well-developed patient, in no apparent distress. CARDIOVASCULAR: Regular rate and regular rhythm without murmurs, gallops, or rubs. RESPIRATORY: Clear to auscultation. Breath sounds equal bilaterally. No wheezes , rales, or rhonchi. chest tube in place. GASTROINTESTINAL: Abdomen soft, non-tender, nondistended. Normal, active bowel sounds MUSCULOSKELETAL: Extremities without clubbing, cyanosis, or edema. NEURO: Alert & Oriented x4 to person, place, time, situation. Moves all ext x4 Procedures chest tube placement. Medications and IVs Current Medications Sodium Chloride (NS 1000 ml Inj) 1,000 ml @ 1,000 mls/hr Q1H ONCE IV Last administered on 01/23/17 02:09; Start 01/23/17 at 01:00; Stop 01/23/17 at 01:59 ; Status DC Ondansetron HCl (Zofran Inj) 4 mg ONCE ONCE IV Last administered on 01/23/17 02:09; Start 01/23/17 at 01:00; Stop 01/23/17 at 01:01; Status DC Propofol (Diprivan 200 Mg/20 ml Inj) 50 mg ONCE ONCE IV Last administered on 01/23/17 02:09; Start 01/23/17 at 01:00; Stop 01/23/17 at 01:01; Status DC Morphine Sulfate (Morphine Inj) 2 mg ONCE ONCE IV PUSH Last administered on 02:08; Start 01/23/17 at 01:00; Stop 01/23/17 at 01:01; Status DC Lidocaine/ Epinephrine (Xylocaine-Epi 1%-1:100,000 Inj) 30 ml ONCE ONCE INFIL Last administered on 01/23/17 02:09; Start 01/23/17 at 01:00; Stop 01/23/17 at 01:01; Status DC Sodium Chloride (NS Flush) 2 ml UNSCH PRN IV FLUSH FLUSH AFTER USING IV ACCESS ; Start 01/23/17 at 02:45 Sodium Chloride (NS Flush) 2 ml BID IV FLUSH Last administered on 01/26/17 21: 27; Start 01/23/17 at 09:00 Naloxone HCl (Narcan Inj) 0.4 mg UNSCH PRN IV SEE LABEL COMMENTS; Start at 02:45 Acetaminophen (Tylenol) 650 mg Q4H PRN PO FEVER/ PAIN 1-3 Last administered on 01/24/17 07:41; Start 01/23/17 at 07:30 Acetaminophen/ Hydrocodone Bitart ([place] 5-325 Mg) 1 tab Q4H PRN PO PAIN 4-6 Last administered on 01/26/17 21:34; Start 01/24/17 at 08:30 Acetaminophen/ Hydrocodone Bitart ([place] 7.5-325 Mg) 1 tab Q4H PRN PO PAIN 7- 10 Last administered on 01/26/17 15:23; Start 01/24/17 at 08:30 A/P Assessment and Plan A/p - spontaneous pneumothorax with collapsed left lung. chest tube in place- continue with pain control. follow the CXR today. pulmonary following. Discharge Planning when cleared by pulmonary. Jose Yu MD Jan 27, 2017 07:41
--- NOTE | 2017-01-27 07:52 | RADRPT ---
EXAM DATE/TIME: 01/27/2017 07:00 [facility] COMPARISON: CHEST SINGLE AP, January 24, 2017, 8:42. INDICATIONS : Patient admitted for lung atelectasis. Evaluate status of pneumothorax post chest tube placement. MEDICAL HISTORY : None. SURGICAL HISTORY : None. ENCOUNTER: Initial ACUITY: 1 day PAIN SCORE: 3/10 LOCATION: Left chest FINDINGS: There is now a moderate to large left-sided pneumothorax with small caliber left chest tube present. There is increasing consolidation in the left lung. Right lung is clear. Heart size within normal [place] its. CONCLUSION: 1. Malfunctioning left chest tube with moderate to large left pneumothorax. Findings to be called to the floor by the technologist. Right lung is clear. Cortes Jimenez MD on January 27, 2017 at 7:46 Board Certified Radiologist. This report was verified electronically.
[2017-01-27] MEDS: SODIUM CHLORIDE 0.9% FLUSH 10 ML FLUSH IV FLUSH SCH ×2 (08:23→20:00)
[2017-01-27] MEDS: ACETAMINOPHEN/HYDROcodone 325 MG/5 MG TAB PO PRN (08:26)
--- NOTE | 2017-01-27 08:52 | RADRPT ---
EXAM DATE/TIME: 01/27/2017 08:13 [facility] COMPARISON: CHEST SINGLE AP, January 27, 2017, 7:00. INDICATIONS : Patient admitted for lung atelectasis. Evaluate status of pneumothorax post chest tube placement. MEDICAL HISTORY : None. SURGICAL HISTORY : None. ENCOUNTER: Initial ACUITY: 4 - 6 days PAIN SCORE: 0/10 LOCATION: Left chest FINDINGS: Left chest tube remains present. There is near complete resolution of previous left pneumothorax with minimal apical pneumothorax remaining. Left lung atelectasis has also improved. Right lung remains c lear. CONCLUSION: 1. Left chest tube present with marked improvement in previous left pneumothorax. Tiny residual apica l pneumothorax and improved left lung atelectasis. Cortes Jimenez MD on January 27, 2017 at 8:48 Board Certified Radiologist. This report was verified electronically.
--- NOTE | 2017-01-27 14:26 | HHI.PR ---
Subjective Remarks alert no SOB CT positive LEAK Objective Vital Signs Date Time Temp Pulse Resp B/P Pulse Ox O2 Delivery O2 Flow Rate FiO2 01/27/17 12:00 97.8 61 16 118/58 99 01/27/17 08:00 95.8 56 16 115/61 97 01/27/17 04:00 96.6 64 20 123/54 97 01/27/17 00:00 96.6 69 20 135/60 98 01/26/17 21:30 100 Room Air 01/26/17 20:00 97.6 67 20 142/84 100 01/26/17 16:00 97.4 58 16 129/56 100 I/O 01/26/17 01/26/17 01/26/17 01/27/17 01/27/17 01/27/17 07:00 15:00 23:00 07:00 15:00 23:00 Intake Total 240 ml 720 ml 720 ml 240 ml Output Total 0 ml 0 ml 0 ml Balance 240 ml 720 ml 720 ml 240 ml 0 ml Intake Oral 240 ml 720 ml 720 ml 240 ml IV Total 0 ml 0 ml Chest Tube Drainage Total 0 ml 0 ml 0 ml # Voids 1 3 2 1 Result Diagram: 01/23/17 0046 01/23/17 0046 Objective Remarks GENERAL: SKIN: Warm and dry. HEAD: Atraumatic. Normocephalic. EYES: Pupils equal and round. No scleral icterus. No injection or drainage. ENT: No nasal bleeding or discharge. Mucous membranes pink and moist. NECK: Trachea midline. No JVD. CARDIOVASCULAR: Regular rate and rhythm. RESPIRATORY: No accessory muscle use. Clear to auscultation. Breath sounds equal bilaterally. GASTROINTESTINAL: Abdomen soft, non-tender, nondistended. Hepatic and splenic margins not palpable. MUSCULOSKELETAL: Extremities without clubbing, cyanosis, or edema. No obvious deformities. NEUROLOGICAL: Awake and alert. No obvious cranial nerve deficits. Motor grossly within normal limits. Five out of 5 muscle strength in the arms and legs. Normal speech. PSYCHIATRIC: Appropriate mood and affect; insight and judgment normal. Assessment and Plan Assessment and Plan ASS: PNX CT positive LEAK PNX BACK WHEN TUBE CLAMPED PLAN: CONSULT THORACIC SURGERY Danii Foy MD Jan 27, 2017 14:26
--- NOTE | 2017-01-27 20:33 | RADRPT ---
EXAM DATE/TIME: 01/27/2017 20:12 [facility] COMPARISON: CHEST SINGLE AP, January 27, 2017, 8:13. INDICATIONS : Shortness of breath, left sided chest tube. MEDICAL HISTORY : None. SURGICAL HISTORY : None. ENCOUNTER: Subsequent ACUITY: 4 - 6 days PAIN SCORE: 6/10 LOCATION: Left chest FINDINGS: Portable AP view of the chest demonstrates a normal-sized cardiac silhouette. Left chest tube remains present and there is a very large left pneumothorax. No mediastinal shift is present. Right lung is clear. Bones demonstrate no acute finding. CONCLUSION: Large left pneumothorax with chest tube in place. These findings were relayed to the patient's nurse via telephone at 8: 31 PM. Tim Crystal MD on January 27, 2017 at 20:27 Board Certified Radiologist. This report was verified electronically.
--- NOTE | 2017-01-27 21:29 | HHI.PR ---
Subjective Remarks alert asked to see patient for chest [place] , stat CXRAY INCREASING pnx Objective Vital Signs Date Time Temp Pulse Resp B/P Pulse Ox O2 Delivery O2 Flow Rate FiO2 01/27/17 19:45 97.3 68 20 136/55 100 01/27/17 16:00 97.8 64 16 125/57 100 01/27/17 12:00 97.8 61 16 118/58 99 01/27/17 08:00 95.8 56 16 115/61 97 01/27/17 07:45 97 01/27/17 04:00 96.6 64 20 123/54 97 01/27/17 00:00 96.6 69 20 135/60 98 01/26/17 21:30 100 Room Air I/O 01/26/17 01/26/17 01/26/17 01/27/17 01/27/17 01/27/17 07:00 15:00 23:00 07:00 15:00 23:00 Intake Total 240 ml 720 ml 720 ml 240 ml 240 ml Output Total 0 ml 0 ml 22 ml Balance 240 ml 720 ml 720 ml 240 ml 218 ml Intake Oral 240 ml 720 ml 720 ml 240 ml 240 ml IV Total 0 ml 0 ml Chest Tube Drainage Total 0 ml 0 ml 22 ml # Voids 1 3 2 1 3 # Bowel Movements 1 Result Diagram: 01/23/17 0046 01/23/17 004 Objective Remarks GENERAL: SKIN: Warm and dry. HEAD: Atraumatic. Normocephalic. EYES: Pupils equal and round. No scleral icterus. No injection or drainage. ENT: No nasal bleeding or discharge. Mucous membranes pink and moist. NECK: Trachea midline. No JVD. CARDIOVASCULAR: Regular rate and rhythm. RESPIRATORY: No accessory muscle use. Clear to auscultation. Breath sounds equal bilaterally. GASTROINTESTINAL: Abdomen soft, non-tender, nondistended. Hepatic and splenic margins not palpable. MUSCULOSKELETAL: Extremities without clubbing, cyanosis, or edema. No obvious deformities. NEUROLOGICAL: Awake and alert. No obvious cranial nerve deficits. Motor grossly within normal limits. Five out of 5 muscle strength in the arms and legs. Normal speech. PSYCHIATRIC: Appropriate mood and affect; insight and judgment normal. Assessment and Plan Assessment and Plan ASS: PNX chest tube manipulated to good position pressure reduced to 30 cn tube now working well air bubbling in under water seal patients discomfort disappeared PLAN F/U CXRAY AN CONSULT THORACIC SURGERY, PENDING Danii Foy MD Jan 27, 2017 21:29
[2017-01-28] VITALS: BP 105/57; PULSE 65; RESP 20; TEMP 98.5; O2SAT 95
[2017-01-28 08:00] VITALS: BP 112/55; PULSE 61; RESP 18; TEMP 96.7; O2SAT 98
[2017-01-28] MEDS: SODIUM CHLORIDE 0.9% FLUSH 10 ML FLUSH IV FLUSH SCH ×2 (09:24→21:53)
--- NOTE | 2017-01-28 10:09 | RADRPT ---
EXAM DATE/TIME: 01/28/2017 09:38 [facility] COMPARISON: CHEST SINGLE AP, January 27, 2017, 20:12. INDICATIONS : Pneumothorax. MEDICAL HISTORY : None. SURGICAL HISTORY : None. ENCOUNTER: Subsequent ACUITY: 4 - 6 days PAIN SCORE: 0/10 LOCATION: chest FINDINGS: There is a small bore chest tube in place on left. There is a moderate size left pneumothorax. The pn eumothorax is considerably smaller than on previous dated 01/27/17. CONCLUSION: 1. Continued left pneumothorax. Pneumothorax is significantly smaller than on previous. Juvenal Mahajan MD on January 28, 2017 at 10:05 Board Certified Radiologist. This report was verified electronically.
--- NOTE | 2017-01-28 10:28 | HHI.PR ---
Subjective Remarks is comfortable. no chest pain or sob. no new complaints. Objective Vitals Vital Signs Date Time Temp Pulse Resp B/P Pulse Ox O2 Delivery O2 Flow Rate FiO2 01/28/17 08:00 96.7 61 18 112/55 98 01/28/17 00:00 98.5 65 20 105/57 95 01/27/17 20:00 100 Nasal Cannula 2.00 01/27/17 19:45 97.3 68 20 136/55 100 01/27/17 16:00 97.8 64 16 125/57 100 01/27/17 12:00 97.8 61 16 118/58 99 I/O 01/27/17 01/27/17 01/27/17 01/28/17 01/28/17 01/28/17 07:00 15:00 23:00 07:00 15:00 23:00 Intake Total 240 ml 240 ml 360 ml 240 ml Output Total 22 ml 0 ml Balance 240 ml 218 ml 360 ml 240 ml Intake Oral 240 ml 240 ml 360 ml 240 ml IV Total 0 ml 0 ml 0 ml Chest Tube Drainage Total 22 ml 0 ml # Voids 1 3 2 3 # Bowel Movements 1 0 0 Imaging Last Impressions Chest X-Ray 01/28/17 0000 Signed Impressions: Service Date/Time: Saturday, January 28, 2017 09:38 - CONCLUSION: 1. Continued left pneumothorax. Pneumothorax is significantly smaller than on previous. Juvenal Mahajan MD Chest CT 01/23/17 0000 Signed Impressions: Service Date/Time: Monday, January 23, 2017 22:37 - CONCLUSION: Moderate left pneumothorax despite presence of a chest tube that appears appropriately positioned. A small left pleural effusion is also seen and there is atelectasis of the left base. Tim Marrero MD Objective Remarks GENERAL: This is a well-nourished, well-developed patient, in no apparent distress. CARDIOVASCULAR: Regular rate and regular rhythm without murmurs, gallops, or rubs. RESPIRATORY: Clear to auscultation. Breath sounds equal bilaterally. No wheezes , rales, or rhonchi. chest tube in place. GASTROINTESTINAL: Abdomen soft, non-tender, nondistended. Normal, active bowel sounds MUSCULOSKELETAL: Extremities without clubbing, cyanosis, or edema. NEURO: Alert & Oriented x4 to person, place, time, situation. Moves all ext x4 Procedures chest tube placement. Medications and IVs Current Medications Sodium Chloride (NS 1000 ml Inj) 1,000 ml @ 1,000 mls/hr Q1H ONCE IV Last administered on 01/23/17 02:09; Start 01/23/17 at 01:00; Stop 01/23/17 at 01:59 ; Status DC Ondansetron HCl (Zofran Inj) 4 mg ONCE ONCE IV Last administered on 01/23/17 02:09; Start 01/23/17 at 01:00; Stop 01/23/17 at 01:01; Status DC Propofol (Diprivan 200 Mg/20 ml Inj) 50 mg ONCE ONCE IV Last administered on 01/23/17 02:09; Start 01/23/17 at 01:00; Stop 01/23/17 at 01:01; Status DC Morphine Sulfate (Morphine Inj) 2 mg ONCE ONCE IV PUSH Last administered on 02:08; Start 01/23/17 at 01:00; Stop 01/23/17 at 01:01; Status DC Lidocaine/ Epinephrine (Xylocaine-Epi 1%-1:100,000 Inj) 30 ml ONCE ONCE INFIL Last administered on 01/23/17 02:09; Start 01/23/17 at 01:00; Stop 01/23/17 at 01:01; Status DC Sodium Chloride (NS Flush) 2 ml UNSCH PRN IV FLUSH FLUSH AFTER USING IV ACCESS ; Start 01/23/17 at 02:45 Sodium Chloride (NS Flush) 2 ml BID IV FLUSH Last administered on 01/28/17 09: 24; Start 01/23/17 at 09:00 Naloxone HCl (Narcan Inj) 0.4 mg UNSCH PRN IV SEE LABEL COMMENTS; Start at 02:45 Acetaminophen (Tylenol) 650 mg Q4H PRN PO FEVER/ PAIN 1-3 Last administered on 01/24/17 07:41; Start 01/23/17 at 07:30 Acetaminophen/ Hydrocodone Bitart ([place] 5-325 Mg) 1 tab Q4H PRN PO PAIN 4-6 Last administered on 01/27/17 08:26; Start 01/24/17 at 08:30 Acetaminophen/ Hydrocodone Bitart ([place] 7.5-325 Mg) 1 tab Q4H PRN PO PAIN 7- 10 Last administered on 01/26/17t 15:23; Start 01/24/17 at 08:30 A/P Assessment and Plan A/p - spontaneous pneumothorax with collapsed left lung. chest tube in place- continue with pain control. CXR today with persistent however smaller pneumothorax. pulmonary follow-up appreciated- CT surgery consult pending. Discharge Planning when cleared by pulmonary. Jose Yu MD Jan 28, 2017 10:28
[2017-01-28 12:00] VITALS: BP 114/58; PULSE 64; RESP 18; TEMP 97.3; O2SAT 98
[2017-01-28] MEDS ORDERED: ceFAZolin 2 GM PREMIX 50 ML IV SCH (14:45)
[2017-01-28] MEDS ORDERED: SODIUM CHLORIDE 0.9% FLUSH 10 ML FLUSH IV FLUSH PRN (14:45)
[2017-01-28] MEDS ORDERED: CHLORHEXIDINE GLUCONATE 4% SOLN 120 ML BTL TOPICAL SCH (14:45)
[2017-01-28] MEDS ORDERED: CEFAZOLIN INJ 500 MG in SODIUM CHLORIDE 0.9% IRR BTL 500 ML IRRIGATION SCH (14:45)
--- NOTE | 2017-01-28 15:18 | MB ---
cc: COLETTE SAAB MD DATE OF CONSULTATION: 01/28/2017 1993 HISTORY OF PRESENT ILLNESS A 21-year-old male presented to the emergency room with acute left-sided chest pain with evidence of a moderate size left pneumothorax. They placed a left chest tube with resolution, when they placed it to water seal, he redeveloped small pneumothorax and he is now on 30 cm of suction. We were consulted due to the persistent development of pneumothorax when placed on water seal. PAST MEDICAL HISTORY No history of diabetes, hypertension or heart disease. No previous surgeries. He is relatively healthy. ALLERGIES No known allergies. MEDICATION No home medications. FAMILY HISTORY Noncontributory. SOCIAL HISTORY He works. No tobacco or alcohol. 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 REVIEW OF SYSTEMS GENERAL: No night sweats, fever, heat and cold intolerance. SKIN: No psoriasis, itching or hives. HEENT: No blurred vision, hearing loss. RESPIRATORY: Positive for shortness of breath or chest discomfort. CARDIOVASCULAR: No chest pain other than the left sided chest discomfort. No palpitations. No paroxysmal nocturnal dyspnea. GASTROINTESTINAL: No diarrhea, vomiting. GENITOURINARY: No burning, frequency, urgency. 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 ENDOCRINE: No diabetes and/or hypothyroidism. PHYSICAL EXAMINATION VITAL SIGNS: Blood pressure 114/60, heart rate 64, temperature max 97.3. GENERAL: Patient is awake, alert, no acute distress. HEENT: Head is normocephalic, atraumatic. Pupils equal and reactive. Oral mucosa pink, moist. NECK: Supple. No JVD. HEART: Heart sounds S1-S2, regular rate and rhythm. No rubs, murmurs, gallops. LUNGS: Clear to auscultation. Slightly diminished on the left. He has a left-sided chest tube at 30 cm of suction. No air leak at this time. ABDOMEN: Soft, nontender. No masses or organomegaly. EXTREMITIES: No cyanosis, clubbing or edema. LABORATORY FINDINGS Shows hemoglobin 15, hematocrit 46, white cell count 10, platelet count 195, sodium 139, potassium 3.9, BUN 16, creatinine 1.03. Alpha-I antitrypsin is 110 which is normal. 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 Procedures, alternatives and risks have been discussed to the patient by Dr. Saab. The patient will undergo left video assisted thoracoscopy with bleb resection and pleurodesis in the a.m. Will keep him n.p.o. after night ___ type and screen and PT/INR. Dictated by: JAY De Leon Colette DIEGO/ADONIS /2:59 PM /3:11 PM
[2017-01-28 16:00] VITALS: BP 123/58; PULSE 67; RESP 18; TEMP 96.8; O2SAT 97
--- NOTE | 2017-01-28 16:04 | HHI.PR ---
Subjective Remarks alert no SOB Objective Vital Signs Date Time Temp Pulse Resp B/P Pulse Ox O2 Delivery O2 Flow Rate FiO2 01/28/17 12:00 97.3 64 18 114/58 98 01/28/17 09:24 Room Air 01/28/17 08:00 96.7 61 18 112/55 98 01/28/17 00:00 98.5 65 20 105/57 95 01/27/17 20:00 100 Nasal Cannula 2.00 01/27/17 19:45 97.3 68 20 136/55 100 I/O 01/27/17 01/27/17 01/27/17 01/28/17 01/28/17 01/28/17 07:00 15:00 23:00 07:00 15:00 23:00 Intake Total 240 ml 240 ml 360 ml 240 ml 960 ml Output Total 22 ml 0 ml Balance 240 ml 218 ml 360 ml 240 ml 960 ml Intake Oral 240 ml 240 ml 360 ml 240 ml 960 ml IV Total 0 ml 0 ml 0 ml Chest Tube Drainage Total 22 ml 0 ml # Voids 1 3 2 3 3 # Bowel Movements 1 0 0 0 Objective Remarks GENERAL: SKIN: Warm and dry. HEAD: Atraumatic. Normocephalic. EYES: Pupils equal and round. No scleral icterus. No injection or drainage. ENT: No nasal bleeding or discharge. Mucous membranes pink and moist. NECK: Trachea midline. No JVD. CARDIOVASCULAR: Regular rate and rhythm. RESPIRATORY: No accessory muscle use. Clear to auscultation. Breath sounds equal bilaterally. GASTROINTESTINAL: Abdomen soft, non-tender, nondistended. Hepatic and splenic margins not palpable. MUSCULOSKELETAL: Extremities without clubbing, cyanosis, or edema. No obvious deformities. NEUROLOGICAL: Awake and alert. No obvious cranial nerve deficits. Motor grossly within normal limits. Five out of 5 muscle strength in the arms and legs. Normal speech. PSYCHIATRIC: Appropriate mood and affect; insight and judgment normal. Assessment and Plan Assessment and Plan ASS: PNX chest tube manipulated to good position STILL LEAKS PLAN For surgery Danii Prasad MD Jan 28, 2017 16:04
[2017-01-28 17:47] LABS: PROTHROMBIN TIME - PATIENT 10.7 SEC (9.8-11.6)
[2017-01-28 20:00] VITALS: BP 125/60; PULSE 62; PULSE 86; RESP 20; TEMP 97.7; O2SAT 96
[2017-01-28] MEDS ORDERED: SODIUM CHLORIDE 0.9% FLUSH 10 ML FLUSH IV FLUSH SCH (21:00)
[2017-01-29] VITALS (16 sets, daily range): BP systolic 98–152; BP diastolic 57–78; PULSE 54–105; RESP 16–20; TEMP 96–98.4; O2SAT 95–100
[2017-01-29] MEDS ORDERED: LACTATED RINGER'S 1000 ML IV PRN (03:15)
[2017-01-29] MEDS ORDERED: POVIDONE IODINE 5% (ANTISEPSIS KIT) 4 APPLICATIONS EACH NARE PRN (03:15)
[2017-01-29] MEDS ORDERED: CHLORHEXIDINE GLUCONATE 2 % 1 PACK (2 CLOTHS) TOPICAL PRN (03:15)
[2017-01-29] MEDS ORDERED: BUPIVACAINE LIPOSO PF 1.3% INJ 20 ML, DEXAMETHASONE INJ 4 MG, MORPHINE INJ 10 MG in SOD... P-ARTICULR SCH (07:15)
[2017-01-29] MEDS ORDERED: MIDAZOLAM HCL 2 MG/2 ML VIAL ONE (07:19)
[2017-01-29] MEDS ORDERED: DEXAMETHASONE SOD PHOS 4 MG/ML VIAL ONE (07:19)
[2017-01-29] MEDS ORDERED: FAMOTIDINE 20 MG/2 ML VIAL ONE (07:21)
[2017-01-29] MEDS: SODIUM CHLORIDE 0.9% FLUSH 10 ML FLUSH IV FLUSH SCH (08:01)
[2017-01-29] MEDS ORDERED: STERILE TALC 4 GM AEROSOL CAN OTHER ONE (09:00)
[2017-01-29] MEDS ORDERED: RESP: ALBUTEROL 2.5 MG/3 ML NEB (PRN) NEB (09:30)
[2017-01-29] MEDS ORDERED: ONDANSETRON HCL 4 MG/2 ML VIAL IV PUSH PRN (09:30)
[2017-01-29] MEDS ORDERED: ACETAMINOPHEN 325 MG TAB PO PRN (09:30)
[2017-01-29] MEDS ORDERED: SODIUM CHLORIDE 0.9% FLUSH 5 ML FLUSH IV FLUSH PRN (09:30)
[2017-01-29] MEDS ORDERED: Post-op Orders (for Pharmacy) MISC OTHER ONE (09:30)
[2017-01-29] MEDS ORDERED: MAGNESIUM HYDROXIDE SUSP 30 ML CUP PO PRN (09:30)
[2017-01-29] MEDS ORDERED: DO NOT ADM ANY ANTICOAGULANT DRUGS PRN (09:40)
[2017-01-29] MEDS ORDERED: *MEPERIDINE 25 MG INJ VIAL PERIprocedural Use ONLY ONE (09:45)
[2017-01-29] MEDS ORDERED: fentaNYL CITRATE 250 MCG/5 ML AMP ONE (09:56)
[2017-01-29] MEDS ORDERED: SUGAMMADEX SODIUM 200 MG/2 ML VIAL IV PUSH ONE ×2 (09:57)
[2017-01-29] MEDS: KETOROLAC TROMETHAMINE 30 MG/ML (IVP) VIAL IV PUSH SCH ×3 (10:00→21:29)
[2017-01-29] MEDS: RESP: ALBUTEROL 2.5 MG/3 ML NEB (SCH) NEB ×3 (10:00→21:19)
--- NOTE | 2017-01-29 10:35 | RADRPT ---
EXAM DATE/TIME: 01/29/2017 09:55 CORRECTION Corrected on: January 29, 2017; The conclusion has been altered to reflect the appropriate side of the tube placement. [facility] COMPARISON: CHEST PA & LAT, January 28, 2017, 9:38. INDICATIONS : Post thoracotomy. MEDICAL HISTORY : None. SURGICAL HISTORY : None. ENCOUNTER: Initial ACUITY: 1 day PAIN SCORE: Non-responsive. LOCATION: Bilateral chest FINDINGS: There has been interval placement of a large bore chest tube on the left. There is minimal left apica l pneumothorax. There is significant reduction in the size of the pneumothorax compared to previous s tudy dated 01/28/17. The right lung is clear The heart is normal in size. Mediastinal contours are within normal limits. CONCLUSION: 1. Interval placement of a large bore chest tube on the left. There is minimal left apical pneumothor ax remaining. Juvenal Mahajan MD on January 29, 2017 at 10:32 Board Certified Radiologist. This report was verified electronically. Juvenal Mahajan MD on January 29, 2017 at 12:26 Board Certified Radiologist. This report was verified electronically.
[2017-01-29] MEDS ORDERED: *morphine SULFATE 8 MG/ML PERIprocedure ONLY ONE ×2 (10:49→11:21)
[2017-01-29] MEDS ORDERED: PROPOFOL 200 MG/20 ML AMP IV ONE (12:00)
[2017-01-29] MEDS ORDERED: NORMOSOL R INJ 1,000 ML IV ONE (12:00)
[2017-01-29] MEDS ORDERED: ACETAMINOPHEN 1000 MG/100 ML VIAL IV ONE (12:00)
[2017-01-29] MEDS ORDERED: ONDANSETRON HCL 4 MG/2 ML VIAL IV PUSH ONE (12:00)
--- NOTE | 2017-01-29 12:57 | HHI.PR ---
Subjective Remarks s/p VATS earlier today. chest tube in place. in no acute distress. denies pain. d/w the RN at the bedside. Objective Vitals Vital Signs Date Time Temp Pulse Resp B/P Pulse Ox O2 Delivery O2 Flow Rate FiO2 01/29/17 11:00 78 15 133/61 98 Nasal Cannula 2 01/29/17 10:45 68 15 135/65 99 Nasal Cannula 2 01/29/17 10:30 64 15 134/68 100 Nasal Cannula 2 01/29/17 10:15 66 16 135/65 100 Nasal Cannula 2 01/29/17 10:00 69 15 134/63 98 Nasal Cannula 2 01/29/17 09:48 97.9 87 15 120/83 98 Nasal Cannula 2 01/29/17 06:46 97.6 57 19 110/58 95 01/29/17 04:00 97.1 54 18 98/57 95 01/29/17 00:00 96.0 58 18 108/58 97 01/28/17 20:00 97.7 86 20 125/60 96 01/28/17 20:00 62 01/28/17 20:00 Room Air 01/28/17 16:00 96.8 67 18 123/58 97 I/O 01/28/17 01/28/17 01/28/17 01/29/17 01/29/17 01/29/17 07:00 15:00 23:00 07:00 15:00 23:00 Intake Total 240 ml 960 ml 360 ml 120 ml 1000 ml Output Total 0 ml 25 ml Balance 240 ml 960 ml 360 ml 120 ml 975 ml Intake Oral 240 ml 960 ml 360 ml 120 ml IV Total 0 ml Other 1000 ml Output Urine Total 0 ml Chest Tube Drainage Total 0 ml Estimated Blood Loss 25 ml # Voids 3 3 1 1 # Bowel Movements 0 0 0 0 Imaging Last Impressions Chest X-Ray 01/29/17 0000 Signed Impressions: Service Date/Time: Sunday, January 29, 2017 09:55 - CONCLUSION: 1. Interval placement of a large bore chest tube on the left. There is minimal left apical pneumothorax remaining. Juvenal Mahajan MD Chest CT 01/23/17 0000 Signed Impressions: Service Date/Time: Monday, January 23, 2017 22:37 - CONCLUSION: Moderate left pneumothorax despite presence of a chest tube that appears appropriately positioned. A small left pleural effusion is also seen and there is atelectasis of the left base. Tim Marrero MD Objective Remarks GENERAL: This is a well-nourished, well-developed patient, in no apparent distress. CARDIOVASCULAR: Regular rate and regular rhythm without murmurs, gallops, or rubs. RESPIRATORY: Clear to auscultation. Breath sounds equal bilaterally. No wheezes , rales, or rhonchi. chest tube in place. GASTROINTESTINAL: Abdomen soft, non-tender, nondistended. Normal, active bowel sounds MUSCULOSKELETAL: Extremities without clubbing, cyanosis, or edema. NEURO: Alert & Oriented x4 to person, place, time, situation. Moves all ext x4 Procedures chest tube placement. VATS Medications and IVs Current Medications Sodium Chloride (NS 1000 ml Inj) 1,000 ml @ 1,000 mls/hr Q1H ONCE IV Last administered on 01/23/17 02:09; Start 01/23/17 at 01:00; Stop 01/23/17 at 01:59 ; Status DC Ondansetron HCl (Zofran Inj) 4 mg ONCE ONCE IV Last administered on 01/23/17 02:09; Start 01/23/17 at 01:00; Stop 01/23/17 at 01:01; Status DC Propofol (Diprivan 200 Mg/20 ml Inj) 50 mg ONCE ONCE IV Last administered on 01/23/17 02:09; Start 01/23/17 at 01:00; Stop 01/23/17 at 01:01; Status DC Morphine Sulfate (Morphine Inj) 2 mg ONCE ONCE IV PUSH Last administered on 02:08; Start 01/23/17 at 01:00; Stop 01/23/17 at 01:01; Status DC Lidocaine/ Epinephrine (Xylocaine-Epi 1%-1:100,000 Inj) 30 ml ONCE ONCE INFIL Last administered on 01/23/17 02:09; Start 01/23/17 at 01:00; Stop 01/23/17 at 01:01; Status DC Sodium Chloride (NS Flush) 2 ml UNSCH PRN IV FLUSH FLUSH AFTER USING IV ACCESS ; Start 01/23/17 at 02:45; Stop 01/29/17 at 09:41; Status DC Sodium Chloride (NS Flush) 2 ml BID IV FLUSH Last administered on 01/28/17 21: 53; Start 01/23/17 at 09:00; Stop 01/29/17 at 09:41; Status DC Naloxone HCl (Narcan Inj) 0.4 mg UNSCH PRN IV SEE LABEL COMMENTS; Start at 02:45 Acetaminophen (Tylenol) 650 mg Q4H PRN PO FEVER/ PAIN 1-3 Last administered on 01/24/17 07:41; Start 01/23/17 at 07:30; Stop 01/29/17 at 09:35; Status DC Acetaminophen/ Hydrocodone Bitart ([place] 5-325 Mg) 1 tab Q4H PRN PO PAIN 4-6 Last administered on 01/27/17 08:26; Start 01/24/17 at 08:30; Stop 01/29/17 at 09:34; Status DC Acetaminophen/ Hydrocodone Bitart ([place] 7.5-325 Mg) 1 tab Q4H PRN PO PAIN 7- 10 Last administered on 01/26/17 15:23; Start 01/24/17 at 08:30; Stop 01/29/17 at 09:34; Status DC Sodium Chloride (NS Flush) 2 ml BID IV FLUSH ; Start 01/28/17 at 21:00; Stop at 21:00; Status DC Sodium Chloride 2 ml 2 ml UNSCH PRN IV FLUSH FLUSH AFTER USING IV ACCESS; Start 01/28/17 at 14:45; Stop 01/28/17 at 15:01; Status DC Cefazolin Sodium 500 mg/Sodium Chloride 505 ml @ 0 mls/hr SERVER IRRIGATION Last administered on 01/29/17 07:42; Start 01/28/17 at 14:45; Stop 02/04/17 at 14:44 Cefazolin Sodium/ Dextrose (Ancef 2 Gm Premix) 50 ml @ 150 mls/hr SERVER IV ; Start 01/28/17 at 14:45; Stop 02/04/17 at 14:44 Chlorhexidine Gluconate 1 applic 1 applic SERVER TOPICAL ; Start 01/28/17 at 14:45; Stop 02/04/17 at 14:44 Lactated Ringer's (Lr 1000 ml Inj) 1,000 ml @ 30 mls/hr Q24H PRN IV SEE LABEL COMMENTS; Start 01/29/17 at 03:15; Stop 02/01/17 at 03:14 Povidone Iodine (Betadine 5% Antisepsis Kit) 1 applic SERVER PRN EACH NARE SEE LABEL COMMENTS; Start 01/29/17 at 03:15; Stop 02/01/17 at 03:14 Chlorhexidine Gluconate 3 pack 3 pack SERVER PRN TOPICAL SEE LABEL COMMENTS; Start 01/29/17 at 03:15; Stop 02/01/17 at 03:14 Bupivacaine Liposome/ Dexamethasone Sodium Phosphate/ Morphine Sulfate/ Sodium Chloride (Exparel Pf 1.3% Inj/Decadron Inj/ Morphine Inj/NS Inj) 42 ml @ 120 mls/hr UNSCH P-ARTICULR Last administered on 01/29/17 07:42; Start 01/29/17 at 07:15; Stop 01/29/17 at 11:15; Status DC Midazolam HCl (Versed Inj) 2 mg STK-MED ONCE .ROUTE ; Start 01/29/17 at 07:19; Stop 01/29/17 at 07:20; Status DC Dexamethasone Sodium Phosphate (Decadron Inj) 4 mg STK-MED ONCE .ROUTE ; Start 01/29/17 at 07:19; Stop 01/29/17 at 07:20; Status DC Famotidine (Pepcid Inj) 20 mg STK-MED ONCE .ROUTE ; Start 01/29/17 at 07:21; Stop 01/29/17 at 07:22; Status DC Talc (Sterile Talc Aerosol 4 Gm) 4 gm STK-MED ONCE OTHER Last administered on 09:00; Start 01/29/17 at 09:00; Stop 01/29/17 at 09:02; Status DC Albuterol Sulfate (Albuterol Neb) 2.5 mg Q6HR NEB NEB Last administered on 10:00; Start 01/29/17 at 10:00 Albuterol Sulfate (Albuterol Neb) 2.5 mg Q2HR NEB PRN NEB WHEEZING; Start 01/29 at 09:30 IV Flush (NS Flush) 2 ml BID IV FLUSH ; Start 01/29/17 at 21:00 IV Flush (NS Flush) 2 ml UNSCH PRN IV FLUSH FLUSH AFTER USING IV ACCESS; Start 01/29/17 at 09:30 Miscellaneous Information STAT ONCE OTHER ; Start 01/29/17 at 09:30; Stop at 10:06; Status DC Cefazolin Sodium/ Dextrose (Ancef 1 Gm Premix) 50 ml @ 150 mls/hr Q8H IV ; Start 01/29/17 at 16:00; Stop 01/30/17 at 08:19 Pantoprazole Sodium (Protonix) 40 mg HS PO ; Start 01/29/17 at 21:00 Ondansetron HCl (Zofran Inj) 4 mg Q6H PRN IV PUSH NAUSEA OR VOMITING; Start at 09:30 Docusate Calcium (Surfak) 240 mg HS PO ; Start 01/29/17 at 21:00 Magnesium Hydroxide (Milk Of Magnesia Liq) 30 ml DAILY PRN PO CONSTIPATION; Start 01/29/17 at 09:30 Acetaminophen (Tylenol) 650 mg Q4H PRN PO PAIN 1-3, TEMPERATURE > 101 F; Start 01/29/17 at 09:30 Acetaminophen/ Hydrocodone Bitart ([place] 5-325 Mg) 1 tab Q3H PRN PO PAIN SCALE 3 TO 5; Start 01/29/17 at 09:30 Acetaminophen/ Hydrocodone Bitart ([place] 5-325 Mg) 2 tab Q3H PRN PO PAIN SCALE 6 TO 10; Start 01/29/17 at 09:30 Ketorolac Tromethamine (Toradol Inj) 15 mg Q6H IV PUSH Last administered on 10:00; Start 01/29/17 at 10:00; Stop 01/30/17 at 04:01 Meperidine HCl (*DEMEROL INJ PERIprocedural ONLY) 25 mg STK-MED ONCE .ROUTE Last administered on 01/29/17 09:45; Start 01/29/17 at 09:45; Stop 01/29/17 at 09:46; Status DC Fentanyl Citrate (fentaNYL INJ) 250 mcg STK-MED ONCE .ROUTE ; Start 01/29/17 at 09:56; Stop 01/29/17 at 09:57; Status DC Sugammadex Sodium ([place] Inj) 200 mg STK-MED ONCE IV PUSH ; Start 01/29/17 at 09:57; Stop 01/29/17 at 09:58; Status DC Miscellaneous Information ALL NURSING DEPARTME... UNSCH PRN .XX SEE LABEL COMMENTS; Start 01/29/17 at 09:40; Stop 01/30/17 at 09:39 Morphine Sulfate (*morphine INJ PERIprocedure ONLY) 8 mg STK-MED ONCE .ROUTE ; Start 01/29/17 at 10:49; Stop 01/29/17 at 10:50; Status DC Morphine Sulfate (*morphine INJ PERIprocedure ONLY) 8 mg STK-MED ONCE .ROUTE ; Start 01/29/17 at 11:21; Stop 01/29/17 at 11:22; Status DC A/P Assessment and Plan A/p - spontaneous pneumothorax with collapsed left lung. pulmonary following and CT surgery consulted- s/p VATS today. chest tube in place. continue with pain control. -DVT prophylaxis with SCD's Jose Yu MD Jan 29, 2017 12:57
[2017-01-29] MEDS: ACETAMINOPHEN/HYDROcodone 325 MG/5 MG TAB PO PRN ×3 (14:33→21:30)
--- NOTE | 2017-01-29 15:29 | PD.OP ---
cc: Jesenia Meek MD; Danii Foy MD Operative Report Date of Surgery: Jan 29, 2017 Preoperative Diagnosis: Postoperative Diagnosis: Procedure: 1. Left Video-Assisted Thoracoscopic Surgery (VATS). 2. Resection of Left Apical Bleb 3. Mechanical and Talc Pleurodesis 4. Intercostal Nerve Block . Surgeon: Jesenia Meek Supervisor Multifocal Lens(s): Renzo Alexander Operation and Findings: PREOPERATIVE DIAGNOSES 1. Left Spontaneous Pneumothorax. 2. Left Upper Lobe Bleb 3. COPD POSTOPERATIVE DIAGNOSES Same SURGICAL PROCEDURE 1. Left Video-Assisted Thoracoscopic Surgery (VATS). 2. Resection of Left Apical Bleb 3. Mechanical and Talc Pleurodesis 4. Intercostal Nerve Block SURGEON Jesenia Meek MD DIMENSIONAL INSPECTOR Margot Alexander, [facility] General double lumen endotracheal. [employer] Saran Castro, DELFINO Gonsalves MD PREPARATION ChloraPrep. COUNTS Needle, sponge, and instrument counts are correct. DRAINS One 24 Fr Ino drain. COMPLICATIONS None. INDICATIONS The patient is a 21 yo gentleman who presents with spontaneous PTX on left without complete re-expansion despite chest tube. The patient is being brought to the operating room for surgical correction of the underlying pathology. DESCRIPTION OF PROCEDURE The patient was brought to the operating room and placed supine on the OR table. Following the induction of adequate general double lumen endotracheal anesthesia and placement of appropriate monitoring devices, the patient was placed in the right lateral decubitus position. The left chest and surrounding areas were then prepped and draped in a standard sterile fashion. A 5 mm camera port was introduced into the 7th intercostal space in mid axillary line, and the camera introduced. A second 5 mm port was then placed anteriorly under direct visual guidance and one posteriorly. Exploration revealed apical blebs with normal remaining lung. The apical segment of the left upper lobe was grasped and resected using a PEARL stapler. The specimen was bagged and removed through the posterior port and sent for definitive histological analysis. Mechanical and talc pleurodesis was performed through the anterior port. The camera port was removed and a 24 Fr Ino drain was placed into the pleural space and exited through the chest wall. This was maintained in place with a nonabsorbable suture. All of the entry sites were injected with Exparel. Following confirmation of the catheter in the proper place, the incisions were closed with [address] was attached to a suction device, and sterile dressing applied. Intercostal nerve block was performed using Ropivacaine/ Morphine solution at the level of the incisions as well as 2 rib spaces above and below. The patient tolerated the procedure well and was extubated and transferred to the recovery room in stable condition. Jesenia Meek MD Jan 29, 2017 15:29
[2017-01-29] MEDS ORDERED: ceFAZolin 1 GM PREMIX 50 ML IV SCH (16:00)
[2017-01-29] MEDS: ceFAZolin 1,000 MG/NS 100 ML IV SCH ×2 (16:02)
--- NOTE | 2017-01-29 16:35 | HHI.PR ---
Subjective Remarks alert no SOB doing well post op Objective Vital Signs Date Time Temp Pulse Resp B/P Pulse Ox O2 Delivery O2 Flow Rate FiO2 01/29/17 16:17 20 01/29/17 16:00 97 01/29/17 15:00 97 Room Air 01/29/17 15:00 70 01/29/17 15:00 98.3 103 20 141/78 97 01/29/17 14:00 88 01/29/17 13:00 76 01/29/17 12:30 98.4 103 20 152/77 99 01/29/17 12:30 18 01/29/17 12:30 99 Nasal Cannula 2.00 01/29/17 11:00 78 15 133/61 98 Nasal Cannula 2 01/29/17 10:45 68 15 135/65 99 Nasal Cannula 2 01/29/17 10:30 64 15 134/68 100 Nasal Cannula 2 01/29/17 10:15 66 16 135/65 100 Nasal Cannula 2 01/29/17 10:00 69 15 134/63 98 Nasal Cannula 2 01/29/17 09:48 97.9 87 15 120/83 98 Nasal Cannula 2 01/29/17 06:46 97.6 57 19 110/58 95 01/29/17 04:00 97.1 54 18 98/57 95 01/29/17 00:00 96.0 58 18 108/58 97 01/28/17 20:00 97.7 86 20 125/60 96 01/28/17 20:00 62 01/28/17 20:00 Room Air I/O 01/28/17 01/28/17 01/28/17 01/29/17 01/29/17 01/29/17 07:00 15:00 23:00 07:00 15:00 23:00 Intake Total 240 ml 960 ml 360 ml 120 ml 1000 ml Output Total 0 ml 25 ml Balance 240 ml 960 ml 360 ml 120 ml 975 ml Intake Oral 240 ml 960 ml 360 ml 120 ml IV Total 0 ml Other 1000 ml Output Urine Total 0 ml Chest Tube Drainage Total 0 ml Estimated Blood Loss 25 ml # Voids 3 3 1 1 # Bowel Movements 0 0 0 0 Objective Remarks GENERAL: SKIN: Warm and dry. HEAD: Atraumatic. Normocephalic. EYES: Pupils equal and round. No scleral icterus. No injection or drainage. ENT: No nasal bleeding or discharge. Mucous membranes pink and moist. NECK: Trachea midline. No JVD. CARDIOVASCULAR: Regular rate and rhythm. RESPIRATORY: No accessory muscle use. Clear to auscultation. Breath sounds equal bilaterally. GASTROINTESTINAL: Abdomen soft, non-tender, nondistended. Hepatic and splenic margins not palpable. MUSCULOSKELETAL: Extremities without clubbing, cyanosis, or edema. No obvious deformities. NEUROLOGICAL: Awake and alert. No obvious cranial nerve deficits. Motor grossly within normal limits. Five out of 5 muscle strength in the arms and legs. Normal speech. PSYCHIATRIC: Appropriate mood and affect; insight and judgment normal. Assessment and Plan Assessment and Plan ASS: PNX chest tube manipulated to good position doing well post op PLAN increase activity Danii Foy MD Jan 29, 2017 16:35
[2017-01-29] MEDS: DOCUSATE CALCIUM 240 MG CAP PO SCH (20:38)
[2017-01-29] MEDS: PANTOPRAZOLE SOD 40 MG DELAYED RELEASE TAB PO SCH (20:38)
[2017-01-29] MEDS: SODIUM CHLORIDE 0.9% FLUSH 5 ML FLUSH IV FLUSH SCH (20:39)
[2017-01-30] VITALS (30 sets, daily range): BP systolic 106–127; BP diastolic 41–69; PULSE 66–106; RESP 16–22; TEMP 97.1–98.5; O2SAT 96–100
[2017-01-30] MEDS: ACETAMINOPHEN/HYDROcodone 325 MG/5 MG TAB PO PRN ×6 (01:37→21:41)
[2017-01-30] MEDS: RESP: ALBUTEROL 2.5 MG/3 ML NEB (SCH) NEB ×4 (03:19→22:00)
[2017-01-30] MEDS: KETOROLAC TROMETHAMINE 30 MG/ML (IVP) VIAL IV PUSH SCH (04:42)
[2017-01-30 05:40] LABS: AUTOMATED NEUTROPHIL # 9.6 TH/MM3 (1.8-7.7); BASOPHIL % 0.2 % (0.0-2.0); EOSINOPHIL % 0.2 % (0.0-4.0); HEMO FLAGS DIFF FINAL; LYMPHOCYTE # 1.9 TH/MM3 (1.0-4.8); MEAN CELL VOLUME 88.4 FL (80.0-100.0); MEAN CORPUSCULAR HEMOGLOBIN 29.9 PG (27.0-34.0); MEAN CORPUSCULAR HGB CONC 33.8 % (32.0-36.0); MONO % 8.5 % (0.0-8.0); NEUT % 76.1 % (16.0-70.0); PLATELET COUNT 199 TH/MM3 (150-450); RED CELL DISTRIBUTION WIDTH 12.2 % (11.6-17.2); WHITE BLOOD COUNT 12.7 TH/MM3 (4.0-11.0)
--- NOTE | 2017-01-30 05:50 | RADRPT ---
EXAM DATE/TIME: 01/30/2017 04:54 [facility] COMPARISON: CHEST SINGLE AP, January 29, 2017, 9:55. INDICATIONS : Shortness of breath. MEDICAL HISTORY : None. SURGICAL HISTORY : None. ENCOUNTER: Subsequent ACUITY: 1 week PAIN SCORE: 0/10 LOCATION: Bilateral chest FINDINGS: Left chest tube again noted. Small apical pneumothorax unchanged. No large effusion. No significant i nfiltrate seen. Heart size stable, within normal limits. CONCLUSION: No change. Tiny apical pneumothorax again seen on the left. Chest tube remains in place. Tim Marrero MD on January 30, 2017 at 5:47 Board Certified Radiologist. This report was verified electronically.
[2017-01-30 05:52] LABS: BICARBONATE 26.5 MEQ/L (21.0-32.0); POTASSIUM 3.3 MEQ/L (3.5-5.1)
[2017-01-30] MEDS: ceFAZolin 1,000 MG/NS 100 ML IV SCH ×4 (08:38)
[2017-01-30] MEDS: SODIUM CHLORIDE 0.9% FLUSH 5 ML FLUSH IV FLUSH SCH ×2 (08:44→21:00)
--- NOTE | 2017-01-30 09:26 | HHI.PR ---
Subjective Remarks f/u; pneumothorax in no acute distress. chest tube in place. has mild pain at the site of chest tube. d/w the RN and no acute issues over night. Objective Vitals Vital Signs Date Time Temp Pulse Resp B/P Pulse Ox O2 Delivery O2 Flow Rate FiO2 01/30/17 09:13 98 21 01/30/17 08:00 99 Room Air 01/30/17 08:00 97.8 66 20 127/58 99 01/30/17 08:00 66 01/30/17 07:00 79 01/30/17 06:32 90 01/30/17 04:08 94 01/30/17 03:24 99 Room Air 01/30/17 03:23 86 01/30/17 03:22 98 21 01/30/17 03:20 98.2 105 16 106/41 96 01/30/17 02:15 71 01/30/17 01:12 68 01/30/17 00:32 100 Room Air 01/30/17 00:32 98.5 77 16 106/57 100 01/30/17 00:06 77 01/29/17 23:17 105 01/29/17 22:00 90 01/29/17 21:22 98 21 01/29/17 21:00 98 01/29/17 20:05 94 01/29/17 19:25 87 01/29/17 19:25 98.1 80 16 123/73 100 01/29/17 19:25 100 Room Air 01/29/17 18:00 66 01/29/17 17:00 74 01/29/17 16:52 18 01/29/17 16:17 20 01/29/17 16:00 97 01/29/17 15:00 97 Room Air 01/29/17 15:00 70 01/29/17 15:00 98.3 103 20 141/78 97 01/29/17 14:00 88 01/29/17 13:00 76 01/29/17 12:30 98.4 103 20 152/77 99 01/29/17 12:30 99 Nasal Cannula 2.00 01/29/17 11:45 99.0 74 15 130/64 98 Nasal Cannula 2 01/29/17 11:30 99.0 78 15 136/66 98 Nasal Cannula 2 01/29/17 11:00 78 15 133/61 98 Nasal Cannula 2 01/29/17 10:45 68 15 135/65 99 Nasal Cannula 2 01/29/17 10:30 64 15 134/68 100 Nasal Cannula 2 01/29/17 10:15 66 16 135/65 100 Nasal Cannula 2 01/29/17 10:00 69 15 134/63 98 Nasal Cannula 2 01/29/17 09:48 97.9 87 15 120/83 98 Nasal Cannula 2 I/O 01/29/17 01/29/17 01/29/17 01/30/17 01/30/17 01/30/17 07:00 15:00 23:00 07:00 15:00 23:00 Intake Total 120 ml 1100 ml 1590 ml 585 ml Output Total 155 ml 760 ml 50 ml Balance 120 ml 945 ml 830 ml 535 ml Intake Oral 120 ml 480 ml 480 ml IV Total 100 ml 1110 ml 105 ml Other 1000 ml Output Urine Total 0 ml 650 ml Chest Tube Drainage Total 130 ml 110 ml 50 ml Estimated Blood Loss 25 ml # Voids 1 2 # Bowel Movements 0 0 Result Diagram: 01/30/17 0448 01/30/17 0448 Imaging Last Impressions Chest X-Ray 01/30/17 0600 Signed Impressions: Service Date/Time: Monday, January 30, 2017 04:54 - CONCLUSION: No change. Tiny apical pneumothorax again seen on the left. Chest tube remains in place. Tim Marrero MD Chest CT 01/23/17 0000 Signed Impressions: Service Date/Time: Monday, January 23, 2017 22:37 - CONCLUSION: Moderate left pneumothorax despite presence of a chest tube that appears appropriately positioned. A small left pleural effusion is also seen and there is atelectasis of the left base. Tim Marrero MD Objective Remarks GENERAL: This is a well-nourished, well-developed patient, in no apparent distress. CARDIOVASCULAR: Regular rate and regular rhythm without murmurs, gallops, or rubs. RESPIRATORY: Clear to auscultation. Breath sounds equal bilaterally. No wheezes , rales, or rhonchi. chest tube in place. GASTROINTESTINAL: Abdomen soft, non-tender, nondistended. Normal, active bowel sounds MUSCULOSKELETAL: Extremities without clubbing, cyanosis, or edema. NEURO: Alert & Oriented x4 to person, place, time, situation. Moves all ext x4 Procedures chest tube placement. VATS Medications and IVs Current Medications Sodium Chloride (NS 1000 ml Inj) 1,000 ml @ 1,000 mls/hr Q1H ONCE IV Last administered on 01/23/17 02:09; Start 01/23/17 at 01:00; Stop 01/23/17 at 01:59 ; Status DC Ondansetron HCl (Zofran Inj) 4 mg ONCE ONCE IV Last administered on 01/23/17 02:09; Start 01/23/17 at 01:00; Stop 01/23/17 at 01:01; Status DC Propofol (Diprivan 200 Mg/20 ml Inj) 50 mg ONCE ONCE IV Last administered on 01/23/17 02:09; Start 01/23/17 at 01:00; Stop 01/23/17 at 01:01; Status DC Morphine Sulfate (Morphine Inj) 2 mg ONCE ONCE IV PUSH Last administered on 02:08; Start 01/23/17 at 01:00; Stop 01/23/17 at 01:01; Status DC Lidocaine/ Epinephrine (Xylocaine-Epi 1%-1:100,000 Inj) 30 ml ONCE ONCE INFIL Last administered on 01/23/17 02:09; Start 01/23/17 at 01:00; Stop 01/23/17 at 01:01; Status DC Sodium Chloride (NS Flush) 2 ml UNSCH PRN IV FLUSH FLUSH AFTER USING IV ACCESS ; Start 01/23/17 at 02:45; Stop 01/29/17 at 09:41; Status DC Sodium Chloride (NS Flush) 2 ml BID IV FLUSH Last administered on 01/28/17 21: 53; Start 01/23/17 at 09:00; Stop 01/29/17 at 09:41; Status DC Naloxone HCl (Narcan Inj) 0.4 mg UNSCH PRN IV SEE LABEL COMMENTS; Start at 02:45 Acetaminophen (Tylenol) 650 mg Q4H PRN PO FEVER/ PAIN 1-3 Last administered on 01/24/17 07:41; Start 01/23/17 at 07:30; Stop 01/29/17 at 09:35; Status DC Acetaminophen/ Hydrocodone Bitart ([place] 5-325 Mg) 1 tab Q4H PRN PO PAIN 4-6 Last administered on 01/27/17 08:26; Start 01/24/17 at 08:30; Stop 01/29/17 at 09:34; Status DC Acetaminophen/ Hydrocodone Bitart ([place] 7.5-325 Mg) 1 tab Q4H PRN PO PAIN 7- 10 Last administered on 01/26/17 15:23; Start 01/24/17 at 08:30; Stop 01/29/17 at 09:34; Status DC Sodium Chloride (NS Flush) 2 ml BID IV FLUSH ; Start 01/28/17 at 21:00; Stop at 21:00; Status DC Sodium Chloride 2 ml 2 ml UNSCH PRN IV FLUSH FLUSH AFTER USING IV ACCESS; Start 01/28/17 at 14:45; Stop 01/28/17 at 15:01; Status DC Cefazolin Sodium 500 mg/Sodium Chloride 505 ml @ 0 mls/hr [employer] IRRIGATION Last administered on 01/29/17 07:42; Start 01/28/17 at 14:45; Stop 02/04/17 at 14:44 Cefazolin Sodium/ Dextrose (Ancef 2 Gm Premix) 50 ml @ 150 mls/hr [employer] IV ; Start 01/28/17 at 14:45; Stop 02/04/17 at 14:44 Chlorhexidine Gluconate 1 applic 1 applic [employer] TOPICAL ; Start 01/28/17 at 14:45; Stop 02/04/17 at 14:44 Lactated Ringer's (Lr 1000 ml Inj) 1,000 ml @ 30 mls/hr Q24H PRN IV SEE LABEL COMMENTS; Start 01/29/17 at 03:15; Stop 02/01/17 at 03:14 Povidone Iodine (Betadine 5% Antisepsis Kit) 1 applic [employer] PRN EACH NARE SEE LABEL COMMENTS; Start 01/29/17 at 03:15; Stop 02/01/17 at 03:14 Chlorhexidine Gluconate 3 pack 3 pack [employer] PRN TOPICAL SEE LABEL COMMENTS; Start 01/29/17 at 03:15; Stop 02/01/17 at 03:14 Bupivacaine Liposome/ Dexamethasone Sodium Phosphate/ Morphine Sulfate/ Sodium Chloride (Exparel Pf 1.3% Inj/Decadron Inj/ Morphine Inj/NS Inj) 42 ml @ 120 mls/hr UNSCH P-ARTICULR Last administered on 01/29/17 07:42; Start 01/29/17 at 07:15; Stop 01/29/17 at 11:15; Status DC Midazolam HCl (Versed Inj) 2 mg STK-MED ONCE .ROUTE ; Start 01/29/17 at 07:19; Stop 01/29/17 at 07:20; Status DC Dexamethasone Sodium Phosphate (Decadron Inj) 4 mg STK-MED ONCE .ROUTE ; Start 01/29/17 at 07:19; Stop 01/29/17 at 07:20; Status DC Famotidine (Pepcid Inj) 20 mg STK-MED ONCE .ROUTE ; Start 01/29/17 at 07:21; Stop 01/29/17 at 07:22; Status DC Talc (Sterile Talc Aerosol 4 Gm) 4 gm STK-MED ONCE OTHER Last administered on 09:00; Start 01/29/17 at 09:00; Stop 01/29/17 at 09:02; Status DC Albuterol Sulfate (Albuterol Neb) 2.5 mg Q6HR NEB NEB Last administered on 09:13; Start 01/29/17 at 10:00 Albuterol Sulfate (Albuterol Neb) 2.5 mg Q2HR NEB PRN NEB WHEEZING; Start 01/29 at 09:30 IV Flush (NS Flush) 2 ml BID IV FLUSH Last administered on 01/30/17 08:44; Start 01/29/17 at 21:00 IV Flush (NS Flush) 2 ml UNSCH PRN IV FLUSH FLUSH AFTER USING IV ACCESS; Start 01/29/17 at 09:30 Miscellaneous Information STAT ONCE OTHER ; Start 01/29/17 at 09:30; Stop at 10:06; Status DC Cefazolin Sodium/ Dextrose (Ancef 1 Gm Premix) 50 ml @ 150 mls/hr Q8H IV ; Start 01/29/17 at 16:00; Stop 01/29/17 at 16:00; Status DC Pantoprazole Sodium (Protonix) 40 mg HS PO Last administered on 01/29/17 20:38 ; Start 01/29/17 at 21:00 Ondansetron HCl (Zofran Inj) 4 mg Q6H PRN IV PUSH NAUSEA OR VOMITING; Start at 09:30 Docusate Calcium (Surfak) 240 mg HS PO Last administered on 01/29/17 20:38; Start 01/29/17 at 21:00 Magnesium Hydroxide (Milk Of Magnesia Liq) 30 ml DAILY PRN PO CONSTIPATION; Start 01/29/17 at 09:30 Acetaminophen (Tylenol) 650 mg Q4H PRN PO PAIN 1-3, TEMPERATURE > 101 F; Start 01/29/17 at 09:30 Acetaminophen/ Hydrocodone Bitart ([place] 5-325 Mg) 1 tab Q3H PRN PO PAIN SCALE 3 TO 5 Last administered on 01/30/17 08:38; Start 01/29/17 at 09:30 Acetaminophen/ Hydrocodone Bitart ([place] 5-325 Mg) 2 tab Q3H PRN PO PAIN SCALE 6 TO 10; Start 01/29/17 at 09:30 Ketorolac Tromethamine (Toradol Inj) 15 mg Q6H IV PUSH Last administered on 04:42; Start 01/29/17 at 10:00; Stop 01/30/17 at 04:01; Status DC Meperidine HCl (*DEMEROL INJ PERIprocedural ONLY) 25 mg STK-MED ONCE .ROUTE Last administered on 01/29/17 09:45; Start 01/29/17 at 09:45; Stop 01/29/17 at 09:46; Status DC Fentanyl Citrate (fentaNYL INJ) 250 mcg STK-MED ONCE .ROUTE ; Start 01/29/17 at 09:56; Stop 01/29/17 at 09:57; Status DC Sugammadex Sodium (Bridion Inj) 200 mg STK-MED ONCE IV PUSH ; Start 01/29/17 at 09:57; Stop 01/29/17 at 09:58; Status DC Miscellaneous Information ALL NURSING DEPARTME... UNSCH PRN .XX SEE LABEL COMMENTS; Start 01/29/17 at 09:40; Stop 01/30/17 at 09:39 Morphine Sulfate (*morphine INJ PERIprocedure ONLY) 8 mg STK-MED ONCE .ROUTE Last administered on 01/29/17 10:49; Start 01/29/17 at 10:49; Stop 01/29/17 at 10:50; Status DC Morphine Sulfate 8 mg 8 mg STK-MED ONCE .ROUTE Last administered on 01/29/17 11:21; Start 01/29/17 at 11:21; Stop 01/29/17 at 11:22; Status DC Cefazolin Sodium/ Sodium Chloride (Ancef Inj/NS Inj) 100 ml @ 200 mls/hr Q8H IV Last administered on 01/30/17 08:38; Start 01/29/17 at 16:00; Stop at 08:29; Status DC A/P Assessment and Plan A/p - spontaneous pneumothorax with collapsed left lung. s/p VATS,resection of Left Apical Bleb and mechanical and Talc Pleurodesis on 01/29/17- CXR today with tiny apical pneumothorax on the left- chest tube in place. continue with pain control. pulmonary and CT surgery following. -hypokalemia; will replace. -DVT prophylaxis with SCD's Jose Yu MD Jan 30, 2017 09:26
[2017-01-30] MEDS ORDERED: POTASSIUM CHLORIDE 20 MEQ CONTROLLED RELEASE TAB PO ONE (09:30)
--- NOTE | 2017-01-30 14:51 | PD.CAR.PN ---
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 Left Video-Assisted Thoracoscopic Surgery (VATS). , 2. Resection of Left Apical Bleb, 3. Mechanical and Talc Pleurodesis 01/29 01/30 pt on room air, ambulating without difficulty pain controlled CXR noted, tiny left apical PTX keep chest tube to suction Objective: Vital Signs Date Time Temp Pulse Resp B/P Pulse Ox O2 Delivery O2 Flow Rate FiO2 01/30/17 14:00 92 01/30/17 13:00 68 01/30/17 12:48 18 01/30/17 12:00 86 01/30/17 11:00 79 01/30/17 11:00 100 Room Air 01/30/17 11:00 97.1 80 20 127/66 100 01/30/17 10:29 20 01/30/17 10:00 106 01/30/17 09:13 98 21 01/30/17 09:00 68 01/30/17 08:00 99 Room Air 01/30/17 08:00 97.8 66 20 127/58 99 01/30/17 08:00 66 01/30/17 07:00 79 01/30/17 06:32 90 01/30/17 04:08 94 01/30/17 03:24 99 Room Air 01/30/17 03:23 86 01/30/17 03:22 98 21 01/30/17 03:20 98.2 105 16 106/41 96 01/30/17 02:15 71 01/30/17 01:12 68 01/30/17 00:32 100 Room Air 01/30/17 00:32 98.5 77 16 106/57 100 01/30/17 00:06 77 01/29/17 23:17 105 01/29/17 22:00 90 01/29/17 21:22 98 21 01/29/17 21:00 98 01/29/17 20:05 94 01/29/17 19:25 87 01/29/17 19:25 98.1 80 16 123/73 100 01/29/17 19:25 100 Room Air 01/29/17 18:00 66 01/29/17 17:00 74 01/29/17 16:52 18 01/29/17 16:00 97 01/29/17 15:00 97 Room Air 01/29/17 15:00 70 01/29/17 15:00 98.3 103 20 141/78 97 Labs: Laboratory Tests Test 01/30/17 04:48 White Blood Count 12.7 TH/MM3 (4.0-11.0) Red Blood Count 4.30 MIL/MM3 (4.50-5.90) Hemoglobin 12.8 GM/DL (13.0-17.0) Hematocrit 38.0 % (39.0-51.0) Mean Corpuscular Volume 88.4 FL (80.0-100.0) Mean Corpuscular Hemoglobin 29.9 PG (27.0-34.0) Mean Corpuscular Hemoglobin 33.8 % Concent (32.0-36.0) Red Cell Distribution Width 12.2 % (11.6-17.2) Platelet Count 199 TH/MM3 (150-450) Mean Platelet Volume 8.4 FL (7.0-11.0) Neutrophils (%) (Auto) 76.1 % (16.0-70.0) Lymphocytes (%) (Auto) 15.0 % (9.0-44.0) Monocytes (%) (Auto) 8.5 % (0.0-8.0) Eosinophils (%) (Auto) 0.2 % (0.0-4.0) Basophils (%) (Auto) 0.2 % (0.0-2.0) Neutrophils # (Auto) 9.6 TH/MM3 (1.8-7.7) Lymphocytes # (Auto) 1.9 TH/MM3 (1.0-4.8) Monocytes # (Auto) 1.1 TH/MM3 (0-0.9) Eosinophils # (Auto) 0.0 TH/MM3 (0-0.4) Basophils # (Auto) 0.0 TH/MM3 (0-0.2) CBC Comment DIFF FINAL Differential Comment Sodium Level 140 MEQ/L (136-145) Potassium Level 3.3 MEQ/L (3.5-5.1) Chloride Level 104 MEQ/L (98-107) Carbon Dioxide Level 26.5 MEQ/L (21.0-32.0) Anion Gap 10 MEQ/L (5-15) Blood Urea Nitrogen 18 MG/DL (7-18) Creatinine 1.05 MG/DL (0.60-1.30) Estimat Glomerular Filtration 88 ML/MIN (>89) Rate Random Glucose 113 MG/DL (74-106) Calcium Level 7.8 MG/DL (8.5-10.1) Result Diagram: 01/30/1744701/30/17447 Telemetry: NSR (1) Spontaneous pneumothorax (2) s/p left VATS bleb resection Plan: pulm toileting OOB ambulate leave chest tube in , f/u CXR in am Daily Riley Jan 30, 2017 14:51
--- NOTE | 2017-01-30 15:56 | HHI.PR ---
Subjective Remarks alert no SOB doing well post op Objective Vital Signs Date Time Temp Pulse Resp B/P Pulse Ox O2 Delivery O2 Flow Rate FiO2 01/30/17 15:23 18 01/30/17 15:00 71 01/30/17 14:00 92 01/30/17 13:00 68 01/30/17 12:00 86 01/30/17 11:00 79 01/30/17 11:00 100 Room Air 01/30/17 11:00 97.1 80 20 127/66 100 01/30/17 10:29 20 01/30/17 10:00 106 01/30/17 09:13 98 21 01/30/17 09:00 68 01/30/17 08:00 99 Room Air 01/30/17 08:00 97.8 66 20 127/58 99 01/30/17 08:00 66 01/30/17 07:00 79 01/30/17 06:32 90 01/30/17 04:08 94 01/30/17 03:24 99 Room Air 01/30/17 03:23 86 01/30/17 03:22 98 21 01/30/17 03:20 98.2 105 16 106/41 96 01/30/17 02:15 71 01/30/17 01:12 68 01/30/17 00:32 100 Room Air 01/30/17 00:32 98.5 77 16 106/57 100 01/30/17 00:06 77 01/29/17 23:17 105 01/29/17 22:00 90 01/29/17 21:22 98 21 01/29/17 21:00 98 01/29/17 20:05 94 01/29/17 19:25 87 01/29/17 19:25 98.1 80 16 123/73 100 01/29/17 19:25 100 Room Air 01/29/17 18:00 66 01/29/17 17:00 74 01/29/17 16:52 18 01/29/17 16:00 97 I/O 01/29/17 01/29/17 01/29/17 01/30/17 01/30/17 01/30/17 07:00 15:00 23:00 07:00 15:00 23:00 Intake Total 120 ml 1100 ml 1590 ml 585 ml Output Total 155 ml 760 ml 50 ml Balance 120 ml 945 ml 830 ml 535 ml Intake Oral 120 ml 480 ml 480 ml IV Total 100 ml 1110 ml 105 ml Other 1000 ml Output Urine Total 0 ml 650 ml Chest Tube Drainage Total 130 ml 110 ml 50 ml Estimated Blood Loss 25 ml # Voids 1 2 # Bowel Movements 0 0 Result Diagram: 01/30/1744701/30/17447 Objective Remarks GENERAL: SKIN: Warm and dry. HEAD: Atraumatic. Normocephalic. EYES: Pupils equal and round. No scleral icterus. No injection or drainage. ENT: No nasal bleeding or discharge. Mucous membranes pink and moist. NECK: Trachea midline. No JVD. CARDIOVASCULAR: Regular rate and rhythm. RESPIRATORY: No accessory muscle use. Clear to auscultation. Breath sounds equal bilaterally. GASTROINTESTINAL: Abdomen soft, non-tender, nondistended. Hepatic and splenic margins not palpable. MUSCULOSKELETAL: Extremities without clubbing, cyanosis, or edema. No obvious deformities. NEUROLOGICAL: Awake and alert. No obvious cranial nerve deficits. Motor grossly within normal limits. Five out of 5 muscle strength in the arms and legs. Normal speech. PSYCHIATRIC: Appropriate mood and affect; insight and judgment normal. Assessment and Plan Assessment and Plan ASS: PNX doing well post op PLAN increase activity Danii Foy MD Jan 30, 2017 15:56
[2017-01-30] MEDS: PANTOPRAZOLE SOD 40 MG DELAYED RELEASE TAB PO SCH (21:40)
[2017-01-30] MEDS: DOCUSATE CALCIUM 240 MG CAP PO SCH (21:40)
[2017-01-30] MEDS ORDERED: MORPHINE SULFATE 4 MG/ML INJ IV PUSH PRN (23:00)
[2017-01-31] VITALS (26 sets, daily range): BP systolic 119–134; BP diastolic 59–68; PULSE 61–98; RESP 16–20; TEMP 97.8–98.6; O2SAT 96–100
[2017-01-31] MEDS: ACETAMINOPHEN/HYDROcodone 325 MG/5 MG TAB PO PRN ×3 (03:04→21:14)
[2017-01-31] MEDS: RESP: ALBUTEROL 2.5 MG/3 ML NEB (SCH) NEB ×4 (03:25→20:24)
--- NOTE | 2017-01-31 05:39 | RADRPT ---
EXAM DATE/TIME: 01/31/2017 04:14 [facility] COMPARISON: CHEST SINGLE AP, January 30, 2017, 4:54. INDICATIONS : Shortness of breath, possible pulmonary disease. MEDICAL HISTORY : None. SURGICAL HISTORY : None. ENCOUNTER: Subsequent ACUITY: 1 week PAIN SCORE: 10/10 LOCATION: Left chest FINDINGS: Mild left basilar and left apical atelectasis noted. Left chest tube remains in place. No pleural eff usion or pneumothorax seen. Heart size stable, within normal limits. CONCLUSION: Mild atelectasis on the left. Left chest tube remains in place. No pneumothorax. Tim Marrero MD on January 31, 2017 at 5:36 Board Certified Radiologist. This report was verified electronically.
[2017-01-31] MEDS: SODIUM CHLORIDE 0.9% FLUSH 5 ML FLUSH IV FLUSH SCH ×2 (07:38→21:00)
[2017-01-31] MEDS ORDERED: HYDR-3516 PO (08:36)
[2017-01-31] MEDS ORDERED: DOCU2.5C PO (08:36)
--- NOTE | 2017-01-31 08:37 | HHI.DS ---
Discharge Summary Admission Date Jan 23, 2017 at 04:07 Discharge Date: Jan 31, 2017 Admitting Diagnosis Spontaneous pneumothorax (1) Spontaneous pneumothorax Diagnosis: Principal CBC/BMP: 01/30/178 01/30/178 Significant Findings Laboratory Tests Test 01/30/17 04:48 White Blood Count 12.7 TH/MM3 (4.0-11.0) Red Blood Count 4.30 MIL/MM3 (4.50-5.90) Hemoglobin 12.8 GM/DL (13.0-17.0) Hematocrit 38.0 % (39.0-51.0) Neutrophils (%) (Auto) 76.1 % (16.0-70.0) Monocytes (%) (Auto) 8.5 % (0.0-8.0) Neutrophils # (Auto) 9.6 TH/MM3 (1.8-7.7) Monocytes # (Auto) 1.1 TH/MM3 (0-0.9) Potassium Level 3.3 MEQ/L (3.5-5.1) Estimat Glomerular Filtration 88 ML/MIN (>89) Rate Random Glucose 113 MG/DL (74-106) Calcium Level 7.8 MG/DL (8.5-10.1) 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 Left Video-Assisted Thoracoscopic Surgery (VATS). , 2. Resection of Left Apical Bleb, 3. Mechanical and Talc Pleurodesis 01/29 01/30 pt on room air, ambulating without difficulty pain controlled CXR noted, tiny left apical PTX keep chest tube to suction 01/31 CT removed Discharge home later today Pt Condition on Discharge: Good Discharge Disposition: Discharge Home Discharge Instructions DIET: Follow Instructions for: As Tolerated, No Restrictions Activities you can perform: Full Weight Bearing, Shower Only-No Bath Activities to avoid: Driving for 24 hrs, Contact Sports, Strenuous Activity Follow up Referrals: Surgical New Medications: Docusate Calcium (Sm Stool Softener) 240 Mg Cap 240 MG PO HS Constipation #10 CAP Hydrocodone-Acetaminophen (Hydrocodone-Acetaminophen) 5-325 mg Tab 1 TAB PO Q6HR PRN PAIN SCALE 3 TO 5 #20 Ref 0 TAB Jesenia Meek MD Jan 31, 2017 08:37
--- NOTE | 2017-01-31 08:40 | HHI.PR ---
Subjective Remarks The patient was feeling too painful to go home today. He said he was requiring morphine overnight which helped. He still has a chest tube in place. He says it hurts to breathe deeply. He has been eating well. He has not had a bowel movement in a few days. Discussed with nursing at the bedside. Objective Vitals Vital Signs Date Time Temp Pulse Resp B/P Pulse Ox O2 Delivery O2 Flow Rate FiO2 01/31/17 08:35 96 01/31/17 06:00 66 01/31/17 05:00 70 01/31/17 04:00 80 01/31/17 03:00 83 01/31/17 03:00 98.6 81 20 134/59 96 01/31/17 02:00 74 01/31/17 01:00 74 01/31/17 00:00 74 01/30/17 23:20 98.3 79 22 123/69 98 01/30/17 23:00 78 01/30/17 22:00 78 01/30/17 21:00 76 01/30/17 20:28 99 01/30/17 20:00 68 01/30/17 19:45 97.4 74 18 118/62 99 01/30/17 19:45 99 Room Air 01/30/17 19:00 81 01/30/17 18:57 20 01/30/17 18:00 92 01/30/17 17:00 75 01/30/17 16:00 87 01/30/17 15:00 71 01/30/17 15:00 98.5 89 20 108/48 96 01/30/17 15:00 96 Room Air 01/30/17 14:00 92 01/30/17 13:00 68 01/30/17 12:00 86 01/30/17 11:00 79 01/30/17 11:00 100 Room Air 01/30/17 11:00 97.1 80 20 127/66 100 01/30/17 10:29 20 01/30/17 10:00 106 01/30/17 09:13 98 21 01/30/17 09:00 68 I/O 01/30/17 01/30/17 01/30/17 01/31/17 01/31/17 01/31/17 07:00 15:00 23:00 07:00 15:00 23:00 Intake Total 585 ml 580 ml 240 ml Output Total 50 ml 40 ml 90 ml Balance 535 ml 540 ml 150 ml Intake Oral 480 ml 480 ml 240 ml IV Total 105 ml 100 ml 0 ml Chest Tube Drainage Total 50 ml 40 ml 90 ml # Voids 2 2 3 # Bowel Movements 0 0 Result Diagram: 01/30/178 01/30/17 0448 Imaging Last Impressions Chest X-Ray 01/31/17 0600 Signed Impressions: Service Date/Time: January 04:14 - CONCLUSION: Mild atelectasis on the left. Left chest tube remains in place. No pneumothorax. Tim Marrero MD Chest CT 01/23/17 0000 Signed Impressions: Service Date/Time: Monday, January 23, 2017 22:37 - CONCLUSION: Moderate left pneumothorax despite presence of a chest tube that appears appropriately positioned. A small left pleural effusion is also seen and there is atelectasis of the left base. Tim Marreor MD Objective Remarks GENERAL: This is a well-nourished, well-developed patient, in no apparent distress. HEENT: NC, AT. CARDIOVASCULAR: Regular rate and regular rhythm without murmurs, gallops, or rubs. RESPIRATORY: Clear to auscultation. Breath sounds equal bilaterally. No wheezes , rales, or rhonchi. Chest tube in place. GASTROINTESTINAL: Abdomen soft, non-tender, nondistended. MUSCULOSKELETAL: Extremities without clubbing, cyanosis, or edema. NEURO: Alert & Oriented x4 to person, place, time, situation. Moves all ext x4. PSYCH: Mood and affect appropriate. Procedures chest tube placement. VATS Medications and IVs Current Medications Medications (Trade) Dose Ordered Sig/Stanley Route Start Time Stop Time Status Last Admin Naloxone HCl 0.4 mg 0.4 mg UNSCH PRN IV 01/23/17 02:45 (Lr 1000 ml Inj) 1,000 ml @ 30 mls/hr Q24H PRN IV 01/29/17 03:15 02/01/17 03:14 (NS Flush) 2 ml BID IV FLUSH 01/29/17 21:00 01/31/17 07:38 (NS Flush) 2 ml UNSCH PRN IV FLUSH 01/29/17 09:30 (Protonix) 40 mg HS PO 01/29/17 21:00 01/30/17 21:40 (Zofran Inj) 4 mg Q6H PRN IV PUSH 01/29/17 09:30 (Surfak) 240 mg HS PO 01/29/17 21:00 01/30/17 21:40 (Milk Of Magnesia Liq) 30 ml DAILY PRN PO 01/29/17 09:30 (Tylenol) 650 mg Q4H PRN PO 01/29/17 09:30 ([place] 5-325 Mg) 1 tab Q3H PRN PO 01/29/17 09:30 01/30/17 21:41 ([place] 5-325 Mg) 2 tab Q3H PRN PO 01/29/17 09:30 01/31/17 03:04 (Morphine Inj) 2 mg Q3H PRN IV PUSH 01/30/17 23:00 01/30/17 23:11 A/P Problem List: (1) Spontaneous pneumothorax ICD Code: J93.83 Status: Acute Assessment and Plan Spontaneous pneumothorax with collapsed left lung. CT surgery and pulmonology consults appreciated. S/p VATS, resection of left apical bleb and mechanical talc pleurodesis on 01/29/17. CXR today with resolved pneumothorax. Chest tube in place. - continue pain control with a bowel regimen. - further management per pulmonary and CT surgery. Hypokalemia Potassium was 3.3, s/p repletion. - monitor and replete as needed. - check mag and phos. Leukocytosis May be a stress reaction following surgery. Afebrile. CXR negative for infection. - follow CBC. DVT prophylaxis with SCD's Discharge Planning Discharge once pain controlled Kenroy Meyer DO Jan 31, 2017 08:40
[2017-01-31] MEDS: SENNOSIDES 8.6 MG TAB PO SCH (09:13)
[2017-01-31 10:02] LABS: AUTOMATED NEUTROPHIL # 5.2 TH/MM3 (1.8-7.7); BASOPHIL % 0.3 % (0.0-2.0); EOSINOPHIL # 0.2 TH/MM3 (0-0.4); EOSINOPHIL % 2.1 % (0.0-4.0); HEMATOCRIT 40.3 % (39.0-51.0); HEMO FLAGS DIFF FINAL; LYMPH % 30.5 % (9.0-44.0); LYMPHOCYTE # 2.7 TH/MM3 (1.0-4.8); MEAN CELL VOLUME 89.3 FL (80.0-100.0); MEAN CORPUSCULAR HEMOGLOBIN 29.9 PG (27.0-34.0); MEAN CORPUSCULAR HGB CONC 33.4 % (32.0-36.0); MONO % 9.3 % (0.0-8.0); NEUT % 57.8 % (16.0-70.0); PLATELET COUNT 184 TH/MM3 (150-450); RED BLOOD COUNT 4.51 MIL/MM3 (4.50-5.90); RED CELL DISTRIBUTION WIDTH 12.5 % (11.6-17.2); WHITE BLOOD COUNT 8.9 TH/MM3 (4.0-11.0)
[2017-01-31 10:10] LABS: BICARBONATE 28.3 MEQ/L (21.0-32.0); MAGNESIUM 2.1 MG/DL (1.5-2.5); POTASSIUM 3.8 MEQ/L (3.5-5.1)
[2017-01-31] MEDS ORDERED: MORPHINE SULFATE 4 MG/ML INJ IV PUSH PRN (14:00)
[2017-01-31] MEDS: PANTOPRAZOLE SOD 40 MG DELAYED RELEASE TAB PO SCH (21:14)
[2017-01-31] MEDS: DOCUSATE CALCIUM 240 MG CAP PO SCH (21:14)
[2017-02-01] VITALS (18 sets, daily range): BP systolic 116–120; BP diastolic 60–66; PULSE 56–82; RESP 16–22; TEMP 97.4–98.1; O2SAT 95–99
[2017-02-01] MEDS: RESP: ALBUTEROL 2.5 MG/3 ML NEB (SCH) NEB ×2 (04:00→10:21)
--- NOTE | 2017-02-01 08:50 | HHI.DCPOC ---
Discharge Care Plan Diagnosis: (1) s/p left VATS bleb resection (2) Spontaneous pneumothorax Goals to Promote Your Health * To prevent worsening of your condition and complications * To maintain your health at the optimal level Directions to Meet Your Goals Take your medications as prescribed Follow your dietary instruction Follow activity as directed Keep your appointments as scheduled Take your immunizations and boosters as scheduled If your symptoms worsen call your PCP, if no PCP go to Urgent Care Center or Emergency Room Smoking is Dangerous to Your Health. Avoid second hand smoke Call the 24-hour hour crisis hotline for domestic abuse at Kenroy Meyer DO Feb 01, 2017 08:50
--- NOTE | 2017-02-01 08:57 | HHI.DS ---
Discharge Summary Admission Date Jan 23, 2017 at 04:07 Discharge Date: Feb 01, 2017 Admitting Diagnosis Spontaneous pneumothorax (1) Spontaneous pneumothorax ICD Code: J93.83 Diagnosis: Principal Procedures chest tube placement. VATS Brief History - From Admission patient is a 21 y/o male with no significant past medical history who presented to ER with left sided chest pain. he says that yesterday around ten in the morning he suddenly started to have some chest pain. pain was moderate in intensity, left sided and associated with sob. he says that the pain lasted till yesterday evening when he decided to come to ER. he was found to have pneumothorax for which he had chest tube. the pain and sob improved after the chest tube insertion. CBC/BMP: 01/31/17 0919 01/31/17 0919 Significant Findings Laboratory Tests Test 01/30/17 01/31/17 04:48 09:19 White Blood Count 12.7 TH/MM3 (4.0-11.0) Red Blood Count 4.30 MIL/MM3 (4.50-5.90) Hemoglobin 12.8 GM/DL (13.0-17.0) Hematocrit 38.0 % (39.0-51.0) Neutrophils (%) (Auto) 76.1 % (16.0-70.0) Monocytes (%) (Auto) 8.5 % (0.0-8.0) 9.3 % (0.0-8.0) Neutrophils # (Auto) 9.6 TH/MM3 (1.8-7.7) Monocytes # (Auto) 1.1 TH/MM3 (0-0.9) Potassium Level 3.3 MEQ/L (3.5-5.1) Estimat Glomerular Filtration 88 ML/MIN (>89) Rate Random Glucose 113 MG/DL (74-106) Calcium Level 7.8 MG/DL (8.5-10.1) Imaging Last Impressions Chest X-Ray 01/31/17 0600 Signed Impressions: Service Date/Time: , January 31, 2017 04:14 - CONCLUSION: Mild atelectasis on the left. Left chest tube remains in place. No pneumothorax. Tim Marrero MD Chest CT 01/23/17 0000 Signed Impressions: Service Date/Time: Monday, January 23, 2017 22:37 - CONCLUSION: Moderate left pneumothorax despite presence of a chest tube that appears appropriately positioned. A small left pleural effusion is also seen and there is atelectasis of the left base. Tim Marrero MD PE at Discharge GENERAL: This is a well-nourished, well-developed patient, in no apparent distress. HEENT: NC, AT. CARDIOVASCULAR: Regular rate and regular rhythm without murmurs, gallops, or rubs. RESPIRATORY: Clear to auscultation. Breath sounds equal bilaterally. No wheezes , rales, or rhonchi. Chest tube removed, bandage in place, nontender. GASTROINTESTINAL: Abdomen soft, non-tender, nondistended. MUSCULOSKELETAL: Extremities without clubbing, cyanosis, or edema. NEURO: Alert & Oriented x4 to person, place, time, situation. Moves all ext x4. PSYCH: Mood and affect appropriate. Pt update on day of discharge The patient was resting comfortably in a chair. He says he's been feeling fine. He still has soreness at the site of the surgery but it is getting better. The pain medications are working. He has been ambulating. He still has not had a bowel movement but feels he will have one today. Hospital Course Spontaneous pneumothorax with collapsed left lung. A chest tube was placed. Pulmonology was consulted. Alpha 1 antitrypsin level was normal. The pneumothorax resolved but reoccurred when chest tube was placed to water seal. CT surgery was then consulted. S/p VATS, resection of left apical bleb and mechanical talc pleurodesis on 01/29/17. CXRs were followed and revealed a resolved pneumothorax. The chest tube was removed. The pt received pain control with a bowel regimen. He was cleared for discharge by CT surgery. He will follow up with pulmonology and surgery upon discharge. Hypokalemia Potassium was 3.3 and was repleted. Potassium level returned to normal. The other electrolytes were also normal. Leukocytosis The pt was aebrile. CXR negative for infection. Leukocytosis resolved. Pt Condition on Discharge: Good Discharge Disposition: Discharge Home Discharge Time: <= 30 minutes Discharge Instructions DIET: Follow Instructions for: As Tolerated, No Restrictions Activities you can perform: Full Weight Bearing, Shower Only-No Bath Activities to Avoid: Driving for 24 hrs, Contact Sports, Strenuous Activity Follow up Referrals: Appointment for Follow Up Surgical - [address] Meek New Medications: Docusate Calcium (Sm Stool Softener) 240 Mg Cap 240 MG PO HS Constipation #10 CAP Hydrocodone-Acetaminophen (Hydrocodone-Acetaminophen) 5-325 mg Tab 1 TAB PO Q6HR PRN PAIN SCALE 3 TO 5 #20 Ref 0 TAB Kenroy Meyer DO Feb 01, 2017 08:57
[2017-02-01] MEDS: SODIUM CHLORIDE 0.9% FLUSH 5 ML FLUSH IV FLUSH SCH (09:00)
[2017-02-01] MEDS: SENNOSIDES 8.6 MG TAB PO SCH (09:46)
[2017-02-01] MEDS: ACETAMINOPHEN/HYDROcodone 325 MG/5 MG TAB PO PRN (09:46)
== END 2017-02-01 14:14 | disposition home or self-care (01) | DRG 164 ==
LOC: NEPE 21:46 → NEDA 01-23 02:37 → OBSVTOIN 01-23 04:07 → N07A 01-23 04:58 → HCIS 01-29 09:35 → HCIN 01-29 12:38
PROVIDERS: ADMIT Hospitalist; ATTEND Hospitalist
PROC: 0BJQ4ZZ Inspection of Pleura, Percutaneous Endoscopic Approach (ICD-10-PCS; 2017-01-29)
PROC: 3E0T3CZ (ICD-10-PCS; 2017-01-29)
PROC: 3E0L3GC Introduction of Other Therapeutic Substance into Pleural Cavity, Percutaneous Approach (ICD-10-PCS; 2017-01-29)
PROC: 0BBG4ZZ Excision of Left Upper Lung Lobe, Percutaneous Endoscopic Approach (ICD-10-PCS; principal; 2017-01-29 07:28)
DX: J93.83 Other pneumothorax (principal); J98.19 Other pulmonary collapse; J43.0 Unilateral pulmonary emphysema [MacLeod's syndrome]; J44.9 Chronic obstructive pulmonary disease, unspecified; E87.6 Hypokalemia; D72.829 Elevated white blood cell count, unspecified
CPT/HCPCS: 32551; 71010; 71020; 71250; 80048; 82103; 83735; 84100; 85025; 85610; 85730; 86850; 86900; 86901; 87641; 88307; 93005; 94150; 94640; 94664; 96374; 96375; 99156; C9290; J0131; J0690; J1100; J1885; J2175; J2250; J2270; J2405; J3010; J7030; J7613